=== PATIENT | female | born 1940 | race Caucasian/White ===

== ENCOUNTER 2020-09-01 14:44 | Outpatient (REF) | payer MEDICARE, SELFPAY ==
[2020-09-01 16:31] LABS: Appearance Urine CLEAR; Color Urine YELLOW; Glucose Urine UA NEG (NEG); Leukocyte Esterase Urine NEG (NEG); Nitrite Urine NEG (NEG); Specific Gravity - Urine <= 1.005 (1.005-1.025); Urine Blood 2+ (NEG); Urine Ketones NEG (NEG); Urine Protein NEG (NEG-TRACE)
[2020-09-01 16:38] LABS: Bacteria Urine TRACE /LPF; Mucus Urine TRACE /LPF; RBC Urine 0-2 /HPF (0); Squamous Epithelial Cell Urine TRACE /LPF; WBC Urine 0 /HPF (0-4)
== END 2020-09-01 14:45 | disposition home or self-care (01) ==
LOC: HO.HMGCLDS 14:44
PROVIDERS: PCP Internal Medicine; Visit Provider Internal Medicine
DX: R31.29 Other microscopic hematuria (principal)
CPT/HCPCS: 81001; 88112

== ENCOUNTER 2020-09-02 09:40 | Outpatient (REF) | payer MEDICARE, SELFPAY ==
[2020-09-02 11:32] LABS: MANUAL DIFF FLAG NO
[2020-09-02 11:53] LABS: Basophils Percent Auto 0.6 % (0-2); Eosinophils Absolute Auto 0.2 X10*3/uL (0.0-0.4); Eosinophils Percent Auto 4.8 % (0-4); Hematocrit 36.4 % (37-47); Hemoglobin 11.7 g/dl (12.0-16.0); Imm Gran Abs Auto 0.01 X10*3/uL (0.00-0.03); Imm Gran Pct Auto 0.2 % (0.0-0.4); Lymphocytes Absolute Auto 1.3 X10*3/uL (1.2-4.9); Lymphocytes Percent Auto 27.9 % (20-40); Mean Corpuscular HGB Conc 32.1 g/dl (31.0-35.0); Mean Corpuscular Hemoglobin 27.9 pg (27.0-33.0); Mean Corpuscular Volume 86.7 fL (80-98); Mean Platelet Volume 10.1 fL (9.4-12.3); Monocytes Absolute Auto 0.5 X10*3/uL (0.1-1.2); Monocytes Percent Auto 10.4 % (2-11); Neutrophils Absolute Auto 2.6 X10*3/uL (2.0-8.3); Neutrophils Percent Auto 56.1 % (45-73); Platelet Count 236 X10*3/uL (160-400); Red Cell Distribution Width 13.4 % (11.0-16.0); White Blood Count 4.6 X10*3/uL (4.8-10.8)
[2020-09-02 11:58] LABS: Alanine Aminotransferase 20 U/L (0-31); Anion Gap 10 (12-20); Aspartate Amino Transferase 23 U/L (5-31); Blood Urea Nitrogen 17 mg/dL (9-16); Calcium 9.1 mg/dL (8.4-10.2); Carbon Dioxide 30 mmol/L (22-29); Chloride 106 mmol/L (96-108); Cholesterol 175 mg/dL; Estimated Glomerular Filt Rate > 60; Glucose Fasting 77 mg/dL (60-99); HDL Cholesterol 62 mg/dL; LDL Cholesterol Calculated 102 mg/dl; Potassium 4.1 mmol/L (3.3-5.1); Sodium 142 mmol/L (135-145); Triglycerides 55 mg/dL
[2020-09-02 12:22] LABS: TSH reflex Free T4 2.59 uIU/mL (0.32-4.0); Vitamin D 25-OH Total 46.6 ng/mL (>30)
== END 2020-09-02 09:41 | disposition home or self-care (01) ==
LOC: HO.HMGCLDS 09:40
PROVIDERS: PCP Internal Medicine; Visit Provider Internal Medicine
DX: Z00.00 Encounter for general adult medical examination without abnormal findings (principal); I10 Essential (primary) hypertension; Z78.0 Asymptomatic menopausal state
CPT/HCPCS: 36415; 80048; 80061; 82306; 84443; 84450; 84460; 85025

== ENCOUNTER 2020-10-27 13:38 | Outpatient (REF) | payer MEDICARE, SELFPAY ==
--- NOTE | ~2020-10-27 | MM_ITS ---
EXAMINATION: MM SCREENING DIGITAL BREAST TOMOSYNTHESIS, BILATERAL CLINICAL INFORMATION: Screening. Asymptomatic. The lifetime risk of breast cancer based on the Tyrer-Cuzick Model is 1%. COMPARISON: Mammography: 10/22/2019, 10/02/2018, 09/16/2017 TECHNIQUE: Digital breast tomosynthesis is performed in both the craniocaudal and mediolateral oblique views along with computer-aided detection (CAD). Synthesized 2D images are generated from the tomosynthesis. Additional left MLO view is provided. FINDINGS: There are scattered areas of fibroglandular density (ACR BI-RADS breast composition Category b). There are no significant masses, abnormal calcifications, or other abnormalities. The axilla and skin contours are unremarkable. No significant changes. MM/MM tomosynthesis screening BI IMPRESSION: No mammographic evidence of malignancy. ASSESSMENT: BI-RADS 1: Negative RECOMMENDATION: Routine annual mammography screening. This patient's information was entered into a reminder system with a target due date for their next mammogram.
== END 2020-10-27 13:39 | disposition home or self-care (01) ==
LOC: HO.MAMMO 13:38
PROVIDERS: Visit Provider Internal Medicine
DX: Z12.31 Encounter for screening mammogram for malignant neoplasm of breast (principal)
CPT/HCPCS: 77063; 77067

== ENCOUNTER 2021-09-09 11:26 | Outpatient (REF) | payer MEDICARE, SELFPAY ==
[2021-09-09 13:27] LABS: MANUAL DIFF FLAG NO
[2021-09-09 13:29] LABS: Basophils Absolute Auto 0.1 X10*3/uL (0.0-0.2); Basophils Percent Auto 0.9 % (0-2); Eosinophils Absolute Auto 0.1 X10*3/uL (0.0-0.4); Eosinophils Percent Auto 2.1 % (0-4); Hematocrit 36.8 % (37.0-47.0); Hemoglobin 11.9 g/dl (12.0-16.0); Imm Gran Abs Auto 0.01 X10*3/uL (0.00-0.03); Imm Gran Pct Auto 0.2 % (0.0-0.4); Lymphocytes Absolute Auto 1.5 X10*3/uL (1.2-4.9); Lymphocytes Percent Auto 26.7 % (20-40); Mean Corpuscular HGB Conc 32.3 g/dl (31.0-35.0); Mean Corpuscular Hemoglobin 27.7 pg (27.0-33.0); Mean Corpuscular Volume 85.8 fL (80.0-98.0); Mean Platelet Volume 10.2 fL (9.4-12.3); Monocytes Absolute Auto 0.7 X10*3/uL (0.1-1.2); Monocytes Percent Auto 11.4 % (2-11); Neutrophils Absolute Auto 3.4 x10*3/uL (2.0-8.3); Neutrophils Percent Auto 58.7 % (45-73); Platelet Count 337 X10*3/uL (160-400); Red Blood Count 4.29 X10*6/uL (4.20-5.50); White Blood Count 5.7 X10*3/uL (4.8-10.8)
[2021-09-09 13:43] LABS: Alanine Aminotransferase 19 U/L (0-31); Anion Gap 15 (12-20); Aspartate Amino Transferase 24 U/L (5-31); Blood Urea Nitrogen 17 mg/dL (9-16); Calcium 9.5 mg/dL (8.4-10.2); Carbon Dioxide 26 mmol/L (22-29); Chloride 102 mmol/L (96-108); Cholesterol 177 mg/dL; Estimated Glomerular Filt Rate > 60; Glucose Fasting 101 mg/dL (60-99); HDL Cholesterol 67 mg/dL; Iron 83 mcg/dL (30-160); LDL Cholesterol Calculated 97 mg/dl; Percent Iron Saturation 24 % (15-50); Potassium 3.9 mmol/L (3.3-5.1); Sodium 139 mmol/L (135-145); Total Iron Binding Capacity 350 mcg/dL (228-428); Triglycerides 66 mg/dL; Unsaturated Iron Binding 267 ug/dL
[2021-09-09 14:03] LABS: TSH reflex Free T4 3.62 uIU/mL (0.32-4.0); Vitamin D 25-OH Total 48.3 ng/mL (>30)
== END 2021-09-09 11:27 | disposition home or self-care (01) ==
LOC: HO.HMGCLDS 11:26
PROVIDERS: PCP Internal Medicine; Visit Provider Internal Medicine
DX: I10 Essential (primary) hypertension (principal); M81.0 Age-related osteoporosis without current pathological fracture; N95.9 Unspecified menopausal and perimenopausal disorder; D64.9 Anemia, unspecified
CPT/HCPCS: 36415; 80048; 80061; 82306; 83540; 84443; 84450; 84460; 85025

== ENCOUNTER 2021-10-31 12:55 | Outpatient (REF) | payer MEDICARE, SELFPAY ==
--- NOTE | ~2021-10-31 | MM_ITS ---
EXAMINATION: MM SCREENING DIGITAL BREAST TOMOSYNTHESIS, BILATERAL CLINICAL INFORMATION: Screening. Asymptomatic. The lifetime risk of breast cancer based on the Tyrer-Cuzick Model is 1.1%. COMPARISON: Mammography: October 27, 2020 and studies dating back to August 05, 2013 TECHNIQUE: Digital breast tomosynthesis is performed in both the craniocaudal and mediolateral oblique views along with computer-aided detection (CAD). Synthesized 2D images are generated from the tomosynthesis. FINDINGS: There are scattered areas of fibroglandular density (ACR BI-RADS breast composition Category b). There are no significant masses, abnormal calcifications, or other abnormalities. MM/MM tomosynthesis screening BI IMPRESSION: There are no significant changes from prior study. ASSESSMENT: BI-RADS 1: Negative RECOMMENDATION: Routine annual mammography screening. This patient's information was entered into a reminder system with a target due date for their next mammogram.
== END 2021-10-31 12:56 | disposition home or self-care (01) ==
LOC: HO.MAMMO 12:55
PROVIDERS: PCP Internal Medicine; Visit Provider Internal Medicine
DX: Z12.31 Encounter for screening mammogram for malignant neoplasm of breast (principal)
CPT/HCPCS: 77063; 77067

== ENCOUNTER 2022-11-01 13:23 | Outpatient (REF) | payer MEDICARE, SELFPAY ==
--- NOTE | ~2022-11-01 | MM_ITS ---
EXAMINATION: MM SCREENING DIGITAL BREAST TOMOSYNTHESIS, BILATERAL CLINICAL INFORMATION: Screening. Asymptomatic. The lifetime risk of breast cancer based on the Tyrer-Cuzick Model is 0.9%. COMPARISON: Mammography: 10/27/2020, 09/22/2019, and dating back to 2016. TECHNIQUE: Digital breast tomosynthesis is performed in both the craniocaudal and mediolateral oblique views along with computer-aided detection (CAD). Synthesized 2D images are generated from the tomosynthesis. FINDINGS: The breasts are heterogeneously dense, which may obscure small masses (ACR BI-RADS breast composition Category c). There are no suspicious masses, suspicious grouped calcifications, or areas of architectural distortion. The parenchymal pattern is stable from prior exams. There are no skin changes. The breasts appear slightly smaller and slightly more dense than previously and 2021, likely secondary to weight loss. MM/MM tomosynthesis screening BI IMPRESSION: No mammographic evidence of malignancy. ASSESSMENT: BI-RADS BI-RADS 1 - Negative RECOMMENDATION: Routine annual mammography screening. 1 year F/U This examination should not preclude the clinical evaluation of a suspicious palpable abnormality. This patient's information was entered into a reminder system with a target due date for their next mammogram.
== END 2022-11-01 13:24 | disposition home or self-care (01) ==
LOC: HO.MAMMO 13:23
PROVIDERS: PCP Internal Medicine; Visit Provider Internal Medicine
DX: Z12.31 Encounter for screening mammogram for malignant neoplasm of breast (principal)
CPT/HCPCS: 77063; 77067

== ENCOUNTER → 2022-11-01 13:30 | Outpatient (BNV) | payer MEDICARE, SELFPAY | PROVIDERS: PCP Internal Medicine; Visit Provider Radiology Diagnostic Radiology | DX: Z12.31 Encounter for screening mammogram for malignant neoplasm of breast (principal) | CPT/HCPCS: 77063; 77067 ==

== ENCOUNTER 2023-01-10 13:51 | Outpatient (AMB) | payer MEDICARE, SELFPAY ==
--- NOTE | 2023-01-10 13:55 | A.OFFPC_ITS ---
Vital Signs 01/10/23 13:57 Height 5 ft 4 in Weight 105 lb 2 oz BMI 18.0 BP 160/84 H Blood Pressure Location Lt brachial Position Sitting Pulse 119 H Pulse Source Pulse Oximeter Pulse Oximetry (%) 99 Oxygen Delivery Method Room Air Intake Visit Reasons: Annual PE Intake Note: pt is here for PE pt will go to get flu vaccine pt would like to go back on her amlodipine Allergies Iodinated Contrast Media [IV CONTRAST] Allergy (Severe, Verified 01/10/23 14:44) SEVERE VOMITING-SHELLFISH ALLERGY mold [MOLD] Allergy (Severe, Verified 01/10/23 14:44) PASSES OUT shellfish derived [SHELLFISH DERIVED] Allergy (Severe, Verified 01/10/23 14:44) VOMITING Penicillins [PENICILLINS] Allergy (Intermediate, Verified 01/10/23 14:44) RASH penicillin V Allergy (Unknown, Verified 01/10/23 14:44) HIVES ENVIRONMENTAL Allergy (Intermediate, Uncoded 01/10/23 14:44) HAYFEVER IV Dye Allergy (Unknown, Uncoded 01/10/23 14:44) shortness of breath shelfish Allergy (Unknown, Uncoded 01/10/23 14:44) vomiting, indigestion Medication List - Last Reconciled 01/10/23 by Genet Parra MD alprazolam (Xanax) 0.25 mg PO DAILY PRN ofzchkuxcunl-ybdm-ogyzx acid 18-400 mg-mcg (Centrum Women) 1 tab PO DAILY Tobacco use date assessed: 01/10/23 Fall risk assessment: No Falls in past year Last assessed Fall Risk: 01/10/23 Dental Screening Dental Screen Date: 01/10/23 Did you have a dental visit in the last 12 months?: Yes Did you have a dental problem in the last 6 months where you did not have access to dental care?: No Was dental information given to patient?: Patient has dentist HPI Annual PE HPI Details 82-year-old lady here today for physical exam. She has hypertension, currently not on any medication at present time. Stopped taking amlodipine, as she felt that she did not needed any more. Her blood pressure today however, is noted to be elevated . Denies any chest pain or chills shortness of breath, no headache, but gets occasional dizziness. Noted to be tachycardic on this visit. She has generalized anxiety disorder, takes alprazolam as needed for acute anxiety attacks. Does not want to get any for other testing for osteoporosis or colon cancer screening, nor does she want to get any vaccines [facility] Medical History Sinus tachycardia Normocytic normochromic anemia Colonoscopy refused Generalized anxiety disorder Essential hypertension Osteoporosis Fracture of femoral neck, left Surgical History History of cholecystectomy History of appendectomy History of tonsillectomy and adenoidectomy History of left hip hemiarthroplasty Social History Housing: House Patient Tobacco Use Status: Never used Tobacco e-Cigarette/Vaping Use: Never Used service: No Current occupational status: retired Cognitive needs: No Hearing needs: No Vision needs: Yes Questionnaire PHQ-9 Over the last 2 weeks, how often have you been bothered by any of the following problems? 1. Little interest or pleasure in doing things: not at all 2. Feeling down, depressed, or hopeless: not at all 3. Trouble falling or staying asleep, or sleeping too much: not at all 4. Feeling tired or having little energy: not at all 5. Poor appetite or overeating: not at all 6. Feeling bad about yourself - or that you are a failure or have let yourself or your family down: not at all 7. Trouble concentrating on things, such as reading the newspaper or watching television: not at all 8. Moving or speaking so slowly that other people could have noticed. Or the opposite - being so fidgety or restless that you have been moving around a lot more than usual: not at all 9. Thoughts that you would be better off or of hurting yourself in some way: not at all Total score: 0 Depression Screening Interpretation: Negative Depression Screening Done: Yes Source: Developed by Drs. Miko Frias, Deja Herrera, Warner Payton and colleagues, with an educational zia from [employer]. Thrive Questionnaire Date Thrive assessed: 01/10/23 I am a: Patient What is your living situation today?: I have a steady place to live Within the past 12 months, did the food you bought not last and you didn't have the money to get more?: Never true Within the past 12 months, did you worry whether your food would run out before you got money to buy more?: Never true Do you have trouble paying for medicines?: No Do you have trouble getting transportation to medical appointments?: No Do you have trouble paying your heating and electricity bill?: No Do you have trouble taking care of your child, family member or friend?: No Do you have trouble with day-to-day activities such as bathing, preparing meals, shopping, managing finances, etc.?: No Are you currently unemployed and looking for a job?: No Are you interested in more education?: No AUDIT C Alcohol Use Questionnaire (AUDIT-C) 1. How often do you have a drink containing alcohol?: Never 3. How often do you have six or more drinks on one occasion?: Never Total Score: 0 BROCK-7 AMB Questionnaire BROCK-7 Date BROCK - 7 assessed: 01/10/23 Feeling nervous, anxious, or on edge: 1 = Several days Not being able to stop or control worryin = Not at all Worrying too much about different things: 0 = Not at all Trouble relaxin = Not at all Being so restless that it is hard to sit still: 0 = Not at all Becoming easily annoyed or irritable: 0 = Not at all Feeling afraid as if something awful might happen: 0 = Not at all Total BROCK-7 score (0-4 normal; 5-9 mild; 10-14 moderate; 15-21 severe): 1 Source: Developed by Drs. Miko Frias, Deja Herrera, Warner Payton and colleagues, with an educational zia from [employer]. Review of Systems Const Denies body aches, Denies fatigue, Denies fever(s), Denies headache(s) and Denies weakness Eyes Details: Has an appointment with Dr. Paul next week for for follow-up regarding glaucoma suspect Denies change in vision ENT Details: Sees her dentist every 8 months Denies dizziness, Denies headache(s), Denies nasal congestion, Denies nasal discharge and Denies sore throat Card Denies chest pain, Denies lightheadedness, Denies palpitations and Denies dyspnea Resp Denies chest congestion, Denies cough, Denies dyspnea and Denies wheezing GI Denies abdominal pain, Denies change in bowel habits and Denies heartburn Denies urinary frequency, Denies dysuria, Reports urinary incontinence (Occasional) and Denies urinary urgency Musc Denies arthralgias, Denies joint swelling and Reports stiffness Skin/Breast Denies lesions and Denies rash Neuro Denies dizziness, Denies headache(s) and Denies weakness Psych Reports no additional complaints Endo Denies fatigue, Denies polydipsia, Denies polyuria and Denies palpitations Arvind/Lymph Denies easy bruising Aller/Immun Denies seasonal rhinorrhea and Denies wheezing Physical exam (Primary Care) Vital Signs: Last Vital Signs Pulse 119 H 01/10/23 13:57 BP 160/84 H 01/10/23 13:57 Pulse Ox 99 01/10/23 13:57 Oxygen Delivery Method Room Air 01/10/23 13:57 BMI result Body Mass Index 18.0 Tobacco/Smoking Status: Tobacco use Status Tobacco use date assessed 01/10/23 01/10/23 14:07 Patient Tobacco Use Status Never used Tobacco 01/10/23 13:55 e-Cigarette/Vaping Use Never Used 01/10/23 13:55 PHQ-9: PHQ-9 Score PHQ-9: Total score 0 01/11/23 11:49 Depression Screening Interpretation: Negative Thrive Assessment: Date of Thrive Assessment Date Thrive assessed 01/10/23 01/10/23 15:05 Const General: comfortable, no acute distress and alert Orientation/consciousness: patient oriented x3 Limitations: no limitations HENMT Ears: external ears normal, TM's normal bilaterally and EAC's normal General nose exam: Normal external nose present and No nasal discharge present Mouth: Normal oral and palatal mucosa present, oropharynx normal and moist mucous membranes Eyes General: appearance normal, both eyes and all related structures Conjunctivae: conjunctivae normal Sclerae: sclerae normal Pupils: Equal, round and reactive pupils present EOM: EOMs intact bilaterally Neck Neck: Yes full ROM, Yes no lymphadenopathy and Yes supple Resp Effort & Inspection: normal respiratory effort and able to speak in complete sentences Auscultation: clear to auscultation bilaterally Cardio Rate: tachycardic GI Palpation (GI): Soft to palpation, nontender and no masses Auscultation: normal bowel sounds Back/Spine/Pelvis Back: No back tenderness Skin General skin exam: no rashes or lesions noted Neuro General: patient oriented x3, gait normal, tone normal, moves all extremities, Normal light touch and pain sensation and no focal motor deficits Cranial nerves: Yes CN's II-XII intact bilaterally and Yes Equal, round and reactive pupils present Cognition (Neuro): normal cognition Extrem General: Yes full ROM, Yes no joint enlargement, Yes no clubbing, cyanosis or edema and Yes no calf tenderness Psych Appearance: grossly normal and well kempt Mental Status: mental status grossly normal Affect: normal affect Attitude: cooperative Thought process: Normal thought process present Thought content: Normal thought content present and suicidality Assessment and Plan Assessment & Plan (1) Annual visit for general adult medical examination with abnormal findings: Code(s): Z00.01 - Encounter for general adult medical examination with abnormal findings Plan: Will check appropriate labs. Recommended dental visit every 6 months and regular eye exams, at least every 2 years, sees Dr. Paul. Take adequate calcium in diet and vitamin-D 3 at 2000 IU per cap once a day, in addition to weight-bearing exercises to help maintain good muscle tone and weight control. Patient declines further testing for breast cancer colon cancer screening, has osteoporosis but does not want to start any medication and declines further testing She already received her flu vaccine, up-to-date with her pneumonia vaccine, reminded to get COVID booster (2) Generalized anxiety disorder: Code(s): F41.1 - Generalized anxiety disorder Plan: Takes alprazolam 0.25 mg tablet as needed for acute anxiety attacks. (3) Sinus tachycardia: Code(s): R00.0 - Tachycardia, unspecified Plan: EKG done today showed presence of sinus tachycardia with occasional PVCs, left atrial enlargement, unchanged from previous EKG done September 05 (4) Normocytic normochromic anemia: Code(s): D64.9 - Anemia, unspecified Plan: TSH reflex free T4, vitamin-D level, CBC and comprehensive metabolic panel ordered. Sinus tachycardia seen on EKG done today, unchanged from previous (5) Colonoscopy refused: Code(s): Z53.20 - Procedure and treatment not carried out because of patient's decision for unspecified reasons (6) Essential hypertension: Code(s): I10 - Essential (primary) hypertension Plan: Blood pressure elevated today, restarted back on amlodipine 2.5 mg taken once a day in a.m... Reinforced importance of following a low sodium diet, getting regular exercise, and lowering stress levels. Orders: Orders TSH reflex Free T4 01/10/23 F41.1 - Generalized anxiety disorder, R00.0 - Tachycardia, unspecified, D64.9 - Anemia, unspecified, Z53.20 - Procedure and treatment not carried out because of patient's decision for unspecified reasons, I10 - Essential (primary) hypertension, M81.0 - Age-related osteoporosis without current pathological fracture, Z00.01 - Encounter for general adult medical examination with abnormal findings Vitamin D 25-OH Total 01/10/23 F41.1 - Generalized anxiety disorder, R00.0 - Tachycardia, unspecified, D64.9 - Anemia, unspecified, Z53.20 - Procedure and treatment not carried out because of patient's decision for unspecified reasons, I10 - Essential (primary) hypertension, M81.0 - Age-related osteoporosis without current pathological fracture, Z00.01 - Encounter for general adult med ical examination with abnormal findings Lipid Panel 01/10/23 F41.1 - Generalized anxiety disorder, R00.0 - Tachycardia, unspecified, D64.9 - Anemia, unspecified, Z53.20 - Procedure and treatment not carried out because of patient's decision for unspecified reasons, I10 - Essential (primary) hypertension, M81.0 - Age-related osteoporosis without current pathological fracture, Z00.01 - Encounter for general adult medical examination with abnormal findings Complete Blood Count Auto Diff 01/10/23 F41.1 - Generalized anxiety disorder, R00.0 - Tachycardia, unspecified, D64.9 - Anemia, unspecified, Z53.20 - Procedure and treatment not carried out because of patient's decision for unspecified reasons, I10 - Essential (primary) hypertension, M81.0 - Age-related osteoporosis without current pathological fracture, Z00.01 - Encounter for general adult medical examination with abnormal findings Vitamin B12 and Folate 01/10/23 F41.1 - Generalized anxiety disorder, R00.0 - Tachycardia, unspecified, D64.9 - Anemia, unspecified, Z53.20 - Procedure and treatment not carried out because of patient's decision for unspecified reasons, I10 - Essential (primary) hypertension, M81.0 - Age-related osteoporosis without current pathological fracture, Z00.01 - Encounter for general adult medical examination with abnormal findings Comprehensive [place]. Panel Fast 01/10/23 F41.1 - Generalized anxiety disorder, R00.0 - Tachycardia, unspecified, D64.9 - Anemia, unspecified, Z53.20 - Procedure and treatment not carried out because of patient's decision for unspecified reasons, I10 - Essential (primary) hypertension, M81.0 - Age-related osteoporosis without current pathological fracture, Z00.01 - Encounter for general adult medical examination with abnormal findings AMB EKG-In Office 01/10/23 R00.0 - Tachycardia, unspecified Medications: New amlodipine 2.5 mg PO DAILY 90 tabs 0RF Refilled alprazolam (Xanax) 0.25 mg PO DAILY PRN 30 tabs 0RF anxiety attacks F41.1 - Generalized anxiety disorder Coding Level of Care Code Est Pt Prev Care >65y(13881) Diagnoses Annual visit for general adult medical examination with abnormal findings Z00.01 Generalized anxiety disorder F41.1 Sinus tachycardia R00.0 Normocytic normochromic anemia D64.9 Colonoscopy refused Z53.20 Essential hypertension I10
[2023-01-10 13:57] VITALS: BP 160/84; PULSE 119; O2SAT 99; BMI 18.0
== END 2023-01-10 15:49 | disposition home or self-care (01) ==
PROVIDERS: Visit Provider Internal Medicine
DX: Z00.01 Encounter for general adult medical examination with abnormal findings (principal); F41.1 Generalized anxiety disorder; R00.0 Tachycardia, unspecified; D64.9 Anemia, unspecified; Z53.20 Procedure and treatment not carried out because of patient's decision for unspecified reasons; I10 Essential (primary) hypertension
CPT/HCPCS: 99213; 99397

== ENCOUNTER 2023-01-30 10:49 | Outpatient (REF) | payer MEDICARE, SELFPAY ==
[2023-01-30 13:34] LABS: MANUAL DIFF FLAG NO
[2023-01-30 13:45] LABS: Basophils Absolute Auto 0.1 X10*3/uL (0.0-0.2); Basophils Percent Auto 0.9 % (0-2); Eosinophils Absolute Auto 0.2 X10*3/uL (0.0-0.4); Hematocrit 37.8 % (37.0-47.0); Hemoglobin 12.6 g/dl (12.0-16.0); Imm Gran Abs Auto 0.02 X10*3/uL (0.00-0.03); Imm Gran Pct Auto 0.3 % (0.0-0.4); Lymphocytes Absolute Auto 1.9 X10*3/uL (1.2-4.9); Lymphocytes Percent Auto 28.8 % (20-40); Mean Corpuscular HGB Conc 33.3 g/dl (31.0-35.0); Mean Corpuscular Hemoglobin 28.6 pg (27.0-33.0); Mean Corpuscular Volume 85.9 fL (80.0-98.0); Mean Platelet Volume 10.2 fL (9.4-12.3); Monocytes Absolute Auto 0.7 X10*3/uL (0.1-1.2); Monocytes Percent Auto 11.1 % (2-11); Neutrophils Absolute Auto 3.7 x10*3/uL (2.0-8.3); Neutrophils Percent Auto 55.9 % (45-73); Platelet Count 305 X10*3/uL (160-400); Red Cell Distribution Width 13.1 % (11.0-16.0); White Blood Count 6.6 X10*3/uL (4.8-10.8)
[2023-01-30 14:10] LABS: Alanine Aminotransferase 18 U/L (0-31); Albumin Level 4.2 g/dL (3.5-5.0); Alkaline Phosphatase 78 U/L (39-117); Anion Gap 14 (12-20); Aspartate Amino Transferase 26 U/L (5-31); Bilirubin Total 1.1 mg/dL (0.0-1.0); Blood Urea Nitrogen 13 mg/dL (9-16); Calcium 9.7 mg/dL (8.4-10.2); Carbon Dioxide 26 mmol/L (22-29); Chloride 101 mmol/L (96-108); Cholesterol 189 mg/dL (<200); Estimated Glomerular Filt Rate > 60; Glucose Fasting 97 mg/dL (60-99); HDL Cholesterol 74 mg/dL (>40); LDL Cholesterol Calculated 99 mg/dL (<100); Potassium 3.5 mmol/L (3.3-5.1); Sodium 137 mmol/L (135-145); Total Protein 8.4 g/dL (6.5-8.0); Triglycerides 81 mg/dL (<150)
[2023-01-30 14:30] LABS: TSH reflex Free T4 4.19 uIU/mL (0.32-4.0); Vitamin D 25-OH Total 59.5 ng/mL (>30)
[2023-01-30 14:39] LABS: Folate 15.5 ng/mL (> or = 4.0); Vitamin B12 816 pg/mL (200-900)
[2023-01-30 15:30] LABS: Free T4 (Free Thyroxine) 0.93 ng/dL (0.71-1.85)
== END 2023-01-30 10:50 | disposition home or self-care (01) ==
LOC: HO.HMGCLDS 10:49
PROVIDERS: PCP Internal Medicine; Visit Provider Internal Medicine
DX: Z00.01 Encounter for general adult medical examination with abnormal findings (principal); F41.1 Generalized anxiety disorder; R00.0 Tachycardia, unspecified; D64.9 Anemia, unspecified; I10 Essential (primary) hypertension; M81.0 Age-related osteoporosis without current pathological fracture
CPT/HCPCS: 36415; 80053; 80061; 82306; 82607; 82746; 84439; 84443; 85025

== ENCOUNTER 2023-02-21 14:30 | Outpatient (AMB) | payer MEDICARE, SELFPAY ==
--- NOTE | 2023-02-21 14:36 | A.OFFPC_ITS ---
Vital Signs 02/21/23 14:40 Height 5 ft 4 in Weight 106 lb 4 oz BMI 18.2 BP 162/78 H Blood Pressure Location Lt brachial Position Sitting Pulse 61 Pulse Source Pulse Oximeter Pulse Oximetry (%) 98 Oxygen Delivery Method Room Air Intake Visit Reasons: one month fu Intake Note: pt is here to follow up 1 month after restarting her BP medication Allergies Iodinated Contrast Media [IV CONTRAST] Allergy (Severe, Verified 02/21/23 14:55) SEVERE VOMITING-SHELLFISH ALLERGY mold [MOLD] Allergy (Severe, Verified 02/21/23 14:55) PASSES OUT shellfish derived [SHELLFISH DERIVED] Allergy (Severe, Verified 02/21/23 14:55) VOMITING Penicillins [PENICILLINS] Allergy (Intermediate, Verified 02/21/23 14:55) RASH penicillin V Allergy (Unknown, Verified 02/21/23 14:55) HIVES ENVIRONMENTAL Allergy (Intermediate, Uncoded 02/21/23 14:55) HAYFEVER IV Dye Allergy (Unknown, Uncoded 02/21/23 14:55) shortness of breath shelfish Allergy (Unknown, Uncoded 02/21/23 14:55) vomiting, indigestion Medication List - Last Reconciled 02/21/23 by Genet Parra MD alprazolam (Xanax) 0.25 mg PO DAILY PRN amlodipine 2.5 mg PO DAILY dhsmmbjkrtha-hfsu-zidxy acid 18-400 mg-mcg (Centrum Women) 1 tab PO DAILY Tobacco use date assessed: 02/21/23 Fall risk assessment: No Falls in past year Last assessed Fall Risk: 02/21/23 HPI one month fu HPI Details 82-year-old lady with hypertension, here today for follow-up on her blood pressure. Currently taking amlodipine 2.5 mg once a day in the morning. She has been checking her blood pressure at home with a radial blood pressure monitor and she has been getting 130/80 all the time. Denies any chest pain, no shortness of breath or lightheadedness. Has been following a low-salt diet. [facility] Medical History Sinus tachycardia Normocytic normochromic anemia Colonoscopy refused Generalized anxiety disorder Essential hypertension Osteoporosis Fracture of femoral neck, left Surgical History History of cholecystectomy History of appendectomy History of tonsillectomy and adenoidectomy History of left hip hemiarthroplasty Social History Housing: House Patient Tobacco Use Status: Never used Tobacco e-Cigarette/Vaping Use: Never Used service: No Current occupational status: retired Cognitive needs: No Hearing needs: No Vision needs: Yes Questionnaire PHQ-9 Over the last 2 weeks, how often have you been bothered by any of the following problems? 1. Little interest or pleasure in doing things: not at all 2. Feeling down, depressed, or hopeless: not at all 3. Trouble falling or staying asleep, or sleeping too much: not at all 4. Feeling tired or having little energy: several days 5. Poor appetite or overeating: not at all 6. Feeling bad about yourself - or that you are a failure or have let yourself or your family down: not at all 7. Trouble concentrating on things, such as reading the newspaper or watching television: not at all 8. Moving or speaking so slowly that other people could have noticed. Or the opposite - being so fidgety or restless that you have been moving around a lot more than usual: not at all 9. Thoughts that you would be better off or of hurting yourself in some way: not at all Total score: 1 Source: Developed by Drs. Miko Frias, Deja Herrera, Warner Payton and colleagues, with an educational zia from [employer]. Thrive Questionnaire Date Thrive assessed: 01/10/23 BROCK-7 AMB Questionnaire BROCK-7 Date BROCK - 7 assessed: 02/21/23 Feeling nervous, anxious, or on edge: 1 = Several days Not being able to stop or control worryin = Several days Worrying too much about different things: 1 = Several days Trouble relaxin = Several days Being so restless that it is hard to sit still: 0 = Not at all Becoming easily annoyed or irritable: 0 = Not at all Feeling afraid as if something awful might happen: 1 = Several days Total BROCK-7 score (0-4 normal; 5-9 mild; 10-14 moderate; 15-21 severe): 5 Source: Developed by Drs. Miko Frias, Deja Herrera, Warner Payton and colleagues, with an educational zia from [employer]. Review of Systems Const Denies body aches, Denies fever(s), Denies headache(s) and Denies weakness ENT Details: Sees her dentist every 8 months Denies dizziness, Denies headache(s), Denies nasal congestion, Denies nasal discharge and Denies sore throat Card Denies chest pain, Denies lightheadedness and Denies dyspnea Resp Denies chest congestion, Denies cough and Denies dyspnea GI Denies abdominal pain, Denies change in bowel habits and Denies heartburn Musc Denies arthralgias, Denies joint swelling and Reports stiffness Neuro Denies dizziness, Denies headache(s) and Denies weakness Physical exam (Primary Care) Vital Signs: Last Vital Signs Pulse 61 02/21/23 14:40 BP 162/78 H 02/21/23 14:40 Pulse Ox 98 02/21/23 14:40 Oxygen Delivery Method Room Air 02/21/23 14:40 BMI result Body Mass Index 18.2 Tobacco/Smoking Status: Tobacco use Status Tobacco use date assessed 02/21/23 02/21/23 14:45 Patient Tobacco Use Status Never used Tobacco 02/21/23 14:36 e-Cigarette/Vaping Use Never Used 02/21/23 14:36 Thrive Assessment: Date of Thrive Assessment Date Thrive assessed 01/10/23 02/21/23 14:36 Const General: comfortable, no acute distress and alert Orientation/consciousness: patient oriented x3 [facility] General nose exam: Normal external nose present Mouth: Normal oral and palatal mucosa present, oropharynx normal and moist mucous membranes Eyes General: appearance normal, both eyes and all related structures Conjunctivae: conjunctivae normal Sclerae: sclerae normal Pupils: Equal, round and reactive pupils present EOM: EOMs intact bilaterally Neck Neck: Yes full ROM, Yes no lymphadenopathy and Yes supple Resp Effort & Inspection: normal respiratory effort and able to speak in complete sentences Auscultation: clear to auscultation bilaterally Cardio Rate: tachycardic GI Palpation (GI): Soft to palpation, nontender and no masses Auscultation: normal bowel sounds Neuro General: patient oriented x3, gait normal, tone normal, moves all extremities, Normal light touch and pain sensation and no focal motor deficits Cranial nerves: Yes CN's II-XII intact bilaterally and Yes Equal, round and reactive pupils present Cognition (Neuro): normal cognition Extrem General: Yes full ROM, Yes no joint enlargement, Yes no clubbing, cyanosis or edema and Yes no calf tenderness Assessment and Plan Assessment & Plan (1) Essential hypertension: Code(s): I10 - Essential (primary) hypertension Plan: Blood pressure still not at goal of less than 130/80. Will increase amlodipine dose to 5 mg daily in a.m.. Continue with low-salt diet, return to the clinic in 2 weeks to check blood pressure and advised to bring her blood pressure wrist monitor with her to compared blood pressure reading Coding Level of Care Code Est Pt Level 3 (90394) Diagnoses Essential hypertension I10
[2023-02-21 14:40] VITALS: BP 162/78; PULSE 61; O2SAT 98; BMI 18.2
== END 2023-02-21 15:07 | disposition home or self-care (01) ==
PROVIDERS: PCP Internal Medicine; Visit Provider Internal Medicine
DX: I10 Essential (primary) hypertension (principal)
CPT/HCPCS: 99213

== ENCOUNTER 2023-03-12 09:46 | Outpatient (AMB) | payer MEDICARE, SELFPAY ==
--- NOTE | 2023-03-12 09:53 | MHC.PC.OV ---
Vital Signs 03/12/23 09:56 Height 5 ft 4 in Weight 106 lb BMI 18.2 BP 152/60 H Blood Pressure Location Lt brachial Position Sitting Pulse 78 Pulse Source Pulse Oximeter Pulse Oximetry (%) 100 Oxygen Delivery Method Room Air Intake Visit Reasons: recheck BP pt to bring BP cuff Intake Note: Pt is here to recheck her BP Allergies Iodinated Contrast Media [IV CONTRAST] Allergy (Severe, Verified 03/12/23 10:33) SEVERE VOMITING-SHELLFISH ALLERGY mold [MOLD] Allergy (Severe, Verified 03/12/23 10:33) PASSES OUT shellfish derived [SHELLFISH DERIVED] Allergy (Severe, Verified 03/12/23 10:33) VOMITING Penicillins [PENICILLINS] Allergy (Intermediate, Verified 03/12/23 10:33) RASH penicillin V Allergy (Unknown, Verified 03/12/23 10:33) HIVES ENVIRONMENTAL Allergy (Intermediate, Uncoded 03/12/23 10:33) HAYFEVER IV Dye Allergy (Unknown, Uncoded 03/12/23 10:33) shortness of breath shelfish Allergy (Unknown, Uncoded 03/12/23 10:33) vomiting, indigestion Medication List - Last Reconciled 03/12/23 by Genet Parra MD alprazolam (Xanax) 0.25 mg PO DAILY PRN amlodipine 5 mg PO DAILY uavhmlfpswzc-doju-zmcob acid 18-400 mg-mcg (Centrum Women) 1 tab PO DAILY Tobacco use date assessed: 03/12/23 Fall risk assessment: No Falls in past year Last assessed Fall Risk: 03/12/23 Dental Screening Dental Screen Date: 04/10/23 Did you have a dental visit in the last 12 months?: Yes Did you have a dental problem in the last 6 months where you did not have access to dental care?: No Was dental information given to patient?: Patient has dentist HPI recheck BP pt to bring BP cuff HPI Details 82-year-old lady here today for follow-up on her hypertension, started on amlodipine 5 mg taken in the morning, on last visit. Has been tolerating amlodipine well, with no side effects of swelling in the legs, no dizziness or chest pain reported. She has been checking her blood pressure at home with her radial cuff blood pressure monitor, and has been running from between 120/ 53-135/ 59, and pulse rate ranging from between 69-76 bpm. [facility], [facility] Medical History Sinus tachycardia Normocytic normochromic anemia Colonoscopy refused Generalized anxiety disorder Essential hypertension Osteoporosis Fracture of femoral neck, left Surgical History History of cholecystectomy History of appendectomy History of tonsillectomy and adenoidectomy History of left hip hemiarthroplasty Social History Housing: House Patient Tobacco Use Status: Never used Tobacco e-Cigarette/Vaping Use: Never Used service: No Current occupational status: retired Cognitive needs: No Hearing needs: No Vision needs: Yes Questionnaire Thrive Questionnaire Date Thrive assessed: 01/10/23 BROCK-7 AMB Questionnaire BROCK-7 Date BROCK - 7 assessed: 02/21/23 Source: Developed by Drs. Miko Frias, Deaj Herrera, Warner Payton and colleagues, with an educational zia from [employer]. Review of Systems Const Denies body aches, Denies headache(s) and Denies weakness ENT Details: Sees her dentist every 8 months Denies dizziness, Denies headache(s) and Denies nasal congestion Card Denies chest pain, Denies lightheadedness and Denies dyspnea Resp Denies chest congestion, Denies cough and Denies dyspnea GI Denies abdominal pain, Denies change in bowel habits and Denies heartburn Musc Denies arthralgias, Denies joint swelling and Reports stiffness Neuro Denies dizziness, Denies headache(s) and Denies weakness Physical exam (Primary Care) Vital Signs: Last Vital Signs Pulse 78 03/12/23 09:56 BP 152/60 H 03/12/23 09:56 Pulse Ox 100 03/12/23 09:56 Oxygen Delivery Method Room Air 03/12/23 09:56 BMI result Body Mass Index 18.2 Tobacco/Smoking Status: Tobacco use Status Tobacco use date assessed 03/12/23 03/12/23 10:01 Patient Tobacco Use Status Never used Tobacco 03/12/23 09:55 e-Cigarette/Vaping Use Never Used 03/12/23 09:55 Thrive Assessment: Date of Thrive Assessment Date Thrive assessed 01/10/23 03/12/23 09:55 Const General: comfortable, no acute distress and alert Orientation/consciousness: patient oriented x3 Eyes General: appearance normal, both eyes and all related structures Neck Neck: Yes full ROM, Yes no lymphadenopathy and Yes supple Resp Effort & Inspection: normal respiratory effort and able to speak in complete sentences Auscultation: clear to auscultation bilaterally Cardio Rate: regular rate Rhythm: regular rhythm Heart sounds: S1 normal heart sound present and S2 normal heart sound present GI Palpation (GI): Soft to palpation, nontender and no masses Auscultation: normal bowel sounds Neuro General: patient oriented x3, gait normal, tone normal, moves all extremities, Normal light touch and pain sensation and no focal motor deficits Cranial nerves: Yes CN's II-XII intact bilaterally Cognition (Neuro): normal cognition Extrem General: Yes full ROM, Yes no joint enlargement, Yes no clubbing, cyanosis or edema and Yes no calf tenderness Assessment and Plan Assessment & Plan (1) Essential hypertension: Code(s): I10 - Essential (primary) hypertension Plan: Blood pressure improving.. Continue with amlodipine 5 mg once a day.. Reinforced importance of following a low sodium diet, getting regular exercise, and lowering stress levels. Continue checking blood pressure at home with her monitor and keep a log of the readings. Will see her back for follow-up after labs done in July 2023 Orders: Orders Lipid Panel 07/08/23 F41.1 - Generalized anxiety disorder, I10 - Essential (primary) hypertension, M81.0 - Age-related osteoporosis without current pathological fracture Alanine Aminotransferase 07/08/23 F41.1 - Generalized anxiety disorder, I10 - Essential (primary) hypertension, M81.0 - Age-related osteoporosis without current pathological fracture Vitamin D 25-OH Total 07/08/23 F41.1 - Generalized anxiety disorder, I10 - Essential (primary) hypertension, M81.0 - Age-related osteoporosis without current pathological fracture Basic Metabolic Panel Fasting 07/08/23 F41.1 - Generalized anxiety disorder, I10 - Essential (primary) hypertension, M81.0 - Age-related osteoporosis without current pathological fracture Aspartate Amino Transferase 07/08/23 F41.1 - Generalized anxiety disorder, I10 - Essential (primary) hypertension, M81.0 - Age-related osteoporosis without current pathological fracture Coding Level of Care Code Est Pt Level 3 (89418) Diagnoses Essential hypertension I10
[2023-03-12 09:56] VITALS: BP 152/60; PULSE 78; O2SAT 100; BMI 18.2
== END 2023-03-12 10:44 | disposition home or self-care (01) ==
PROVIDERS: PCP Internal Medicine; Visit Provider Internal Medicine
DX: I10 Essential (primary) hypertension (principal)
CPT/HCPCS: 99213

== ENCOUNTER 2023-07-16 09:56 | Outpatient (AMB) | payer MEDICARE, SELFPAY ==
[2023-07-16 10:04] VITALS: BP 142/66; PULSE 81; O2SAT 98; BMI 18.5
--- NOTE | 2023-07-16 10:04 | A.OFFPC_ITS ---
Vital Signs 07/16/23 10:04 Height 5 ft 4 in Weight 108 lb BMI 18.5 BP 142/66 H Blood Pressure Location Lt brachial Position Sitting Pulse 81 Pulse Source Pulse Oximeter Pulse Oximetry (%) 98 Oxygen Delivery Method Room Air Intake Visit Reasons: 4 month fu Intake Note: Pt is here today for her 4 months f/u Allergies Iodinated Contrast Media [IV CONTRAST] Allergy (Severe, Verified 07/16/23 10:36) SEVERE VOMITING-SHELLFISH ALLERGY mold [MOLD] Allergy (Severe, Verified 07/16/23 10:36) PASSES OUT shellfish derived [SHELLFISH DERIVED] Allergy (Severe, Verified 07/16/23 10:36) VOMITING Penicillins [PENICILLINS] Allergy (Intermediate, Verified 07/16/23 10:36) RASH penicillin V Allergy (Unknown, Verified 07/16/23 10:36) HIVES ENVIRONMENTAL Allergy (Intermediate, Uncoded 07/16/23 10:36) HAYFEVER IV Dye Allergy (Unknown, Uncoded 07/16/23 10:36) shortness of breath shelfish Allergy (Unknown, Uncoded 07/16/23 10:36) vomiting, indigestion Medication List - Last Reconciled 07/16/23 by Genet Parra MD alprazolam (Xanax) 0.25 mg PO DAILY PRN amlodipine 5 mg PO DAILY mxvtsrpjlgzz-kyir-cxlgs acid 18-400 mg-mcg (Centrum Women) 1 tab PO DAILY Tobacco use date assessed: 07/16/23 Fall risk assessment: No Falls in past year Last assessed Fall Risk: 07/16/23 Dental Screening Dental Screen Date: 07/16/23 Did you have a dental visit in the last 12 months?: Yes Did you have a dental problem in the last 6 months where you did not have access to dental care?: Yes Was dental information given to patient?: Patient has dentist HPI 4 month fu HPI Details 82-year-old lady with hypertension, gene ralized anxiety disorder, here today for her follow-up. She has been taking amlodipine 5 mg once a day, with blood pressure within acceptable limits. Takes alprazolam as needed for acute anxiety attacks, which patient states has been happening infrequently. She has history of osteoporosis but does not want to do further bone density scan testing or start any treatment for this. Overall feels well, still drives, and lives in her own home. She has an appointment already scheduled for a screening mammogram in October 2023. [facility] Medical History (Updated 07/16/23 @ 10:52 by Genet Parra MD) Colonoscopy refused Generalized anxiety disorder Essential hypertension Osteoporosis Fracture of femoral neck, left Surgical History History of cholecystectomy History of appendectomy History of tonsillectomy and adenoidectomy History of left hip hemiarthroplasty Social History Housing: House Patient Tobacco Use Status: Never used Tobacco e-Cigarette/Vaping Use: Never Used service: No Current occupational status: retired Cognitive needs: No Hearing needs: No Vision needs: Yes Questionnaire PHQ-9 Over the last 2 weeks, how often have you been bothered by any of the following problems? 1. Little interest or pleasure in doing things: not at all 2. Feeling down, depressed, or hopeless: not at all 3. Trouble falling or staying asleep, or sleeping too much: not at all 4. Feeling tired or having little energy: not at all 5. Poor appetite or overeating: not at all 6. Feeling bad about yourself - or that you are a failure or have let yourself or your family down: not at all 7. Trouble concentrating on things, such as reading the newspaper or watching television: not at all 8. Moving or speaking so slowly that other people could have noticed. Or the opposite - being so fidgety or restless that you have been moving around a lot more than usual: not at all 9. Thoughts that you would be better off or of hurting yourself in some way: not at all Total score: 0 Depression Screening Interpretation: Negative Depression Screening Done: Yes 56305 - PHQ-9 Billing: Yes Source: Developed by Drs. Miko Frias, Deja Herrera, Warner Payton and colleagues, with an educational zia from [employer]. Thrive Questionnaire Date Thrive assessed: 07/16/23 I am a: Patient What is your living situation today?: I have a steady place to live Within the past 12 months, did the food you bought not last and you didn't have the money to get more?: Never true Within the past 12 months, did you worry whether your food would run out before you got money to buy more?: Never true Do you have trouble paying for medicines?: No Do you have trouble getting transportation to medical appointments?: No Do you have trouble paying your heating and electricity bill?: No Do you have trouble taking care of your child, family member or friend?: No Do you have trouble with day-to-day activities such as bathing, preparing meals, shopping, managing finances, etc.?: No Are you currently unemployed and looking for a job?: No Are you interested in more education?: No THRIVE Score: 0 AUDIT C Alcohol Use Questionnaire (AUDIT-C) 1. How often do you have a drink containing alcohol?: Never 3. How often do you have six or more drinks on one occasion?: Never Total Score: 0 BROCK-7 AMB Questionnaire BRCOK-7 Date BROCK - 7 assessed: 07/16/23 Feeling nervous, anxious, or on edge: 0 = Not at all Not being able to stop or control worryin = Not at all Worrying too much about different things: 0 = Not at all Trouble relaxin = Not at all Being so restless that it is hard to sit still: 0 = Not at all Becoming easily annoyed or irritable: 0 = Not at all Feeling afraid as if something awful might happen: 0 = Not at all Total BROCK-7 score (0-4 normal; 5-9 mild; 10-14 moderate; 15-21 severe): 0 Source: Developed by Drs. Miko Frias, Deja Herrera, Warner Payton and colleagues, with an educational zia from [employer]. Review of Systems Const Denies body aches, Denies headache(s) and Denies weakness ENT Details: Sees her dentist every 8 months Denies dizziness, Denies headache(s) and Denies nasal congestion Card Denies chest pain, Denies lightheadedness and Denies dyspnea Resp Denies chest congestion, Denies cough and Denies dyspnea GI Denies abdominal pain, Denies change in bowel habits and Denies heartburn Musc Denies arthralgias, Denies joint swelling and Reports stiffness Neuro Denies dizziness, Denies headache(s) and Denies weakness Endo Reports no additional complaints Arvind/Lymph Reports no additional complaints Aller/Immun Reports seasonal rhinorrhea Physical exam (Primary Care) Vital Signs: Last Vital Signs Pulse 81 07/16/23 10:04 BP 142/66 H 07/16/23 10:04 Pulse Ox 98 07/16/23 10:04 Oxygen Delivery Method Room Air 07/16/23 10:04 BMI result Body Mass Index 18.5 Tobacco/Smoking Status: Tobacco use Status Tobacco use date assessed 07/16/23 07/16/23 10:15 Patient Tobacco Use Status Never used Tobacco 07/16/23 10:06 e-Cigarette/Vaping Use Never Used 07/16/23 10:06 PHQ-9: PHQ-9 Score PHQ-9: Total score 0 07/16/23 10:44 Depression Screening Interpretation: Negative Thrive Assessment: Date of Thrive Assessment Date Thrive assessed 07/16/23 07/16/23 10:19 Const General: comfortable, no acute distress and alert Nutritional Appearance: average body habitus Orientation/consciousness: patient oriented x3 Limitations: ambulation with cane HENMT Head: Yes normocephalic Mouth: Normal oral and palatal mucosa present, oropharynx normal and moist mucous membranes Eyes General: appearance normal, both eyes and all related structures Neck Neck: Yes full ROM, Yes no lymphadenopathy and Yes supple Resp Effort & Inspection: normal respiratory effort and able to speak in complete sentences Auscultation: clear to auscultation bilaterally Cardio Rate: regular rate Rhythm: regular rhythm Heart sounds: S1 normal heart sound present and S2 normal heart sound present GI Palpation (GI): Soft to palpation, nontender and no masses Auscultation: normal bowel sounds Back/Spine/Pelvis Other: Kyphosis , no tenderness on palpation over spine Neuro General: patient oriented x3, tone normal, moves all extremities, Normal light touch and pain sensation and no focal motor deficits Cranial nerves: Yes CN's II-XII intact bilaterally Cognition (Neuro): normal cognition Extrem General: Yes full ROM, Yes no joint enlargement, Yes no clubbing, cyanosis or edema and Yes no calf tenderness Psych Appearance: grossly normal and well kempt Mental Status: mental status grossly normal Speech and movement: Normal speech and movement present Affect: normal affect Results Reviewed Results Reviewed: Name: Delano Meadows Age/Sex: 82/F : 1940 Unit#: [id number] Attend Dr: Genet Parra MD Re01/30/23 Status: DEP REF Location: [facility] Disch: SPEC : [id number] MARISOL: 01/30/23 STATUS: COMP REQ : [id number] RECD: 01/30/[address]: Genet Parra MD COMP: 01/30/23 ENTERED: 01/30/[address]: ORDERED: CBC Auto Diff Test Result Flag Reference WBC 6.6 4.8-10.8 X10*3/uL RBC 4.40 4.20-5.50 X10*6/uL HGB 12.6 12.0-16.0 g/dl HCT 37.8 37.0-47.0 % MCV 85.9 80.0-98.0 fL MCH 28.6 27.0-33.0 pg MCHC 33.3 31.0-35.0 g/dl RDW 13.1 11.0-16.0 % PLT 305 160-400 X10*3/uL Name: Delano Meadows Age/Sex: 82/F : 1940 Unit#: [id number] Attend Dr: Genet Parra MD Re01/30/23 Status: DEP REF Location: [facility] Disch: SPEC : [id number] MARISOL: 01/30/23 STATUS: COMP REQ : [id number] RECD: 01/30/[address]: Genet Parra MD COMP: 01/30/23 ENTERED: 01/30/[address]: ORDERED: CMP Fast, Lipid Panel, Vitamin D 25-OH, Free T4, TSH Rflx Test Result Flag Reference Sodium 137 135-145 mmol/L Potassium 3.5 3.3-5.1 mmol/L CL 101 96-108 mmol/L CO2 26 22-29 mmol/L Gap 14 12-20 BUN 13 9-16 mg/dL Creat 0.64 0.5-1.4 mg/dL EGFR > 60 NOTE: For -[place] individuals, multiply the result by 1.210. Chronic Kidney Disease: Estimated GFR < 60 mL/min/1.73m2 Severe Kidney Disease: Estimated GFR < 15 mL/min/1.73m2 FBS 97 60-99 mg/dL CA 9.7 8.4-10.2 mg/dL Total Bili 1.1 H 0.0-1.0 mg/dL AST (GOT) 26 5-31 U/L ALT (GPT) 18 0-31 U/L Protein, Total 8.4 H 6.5-8.0 g/dL Alb 4.2 3.5-5.0 g/dL Triglyceride 81 <150 mg/dL Desirable Triglyceride: less than 150 mg/dL Borderline High Triglyceride 150-199 mg/dL High Triglyceride: 200-499 mg/dL Very High Triglyceride: greater than or equal to 5OO mg/dL Cholesterol 189 <200 mg/dL Desirable Cholesterol: less than 200 mg/dL Borderline High Cholesterol: 200-239 mg/dL High Cholesterol: greater than 239 mg/dL LDL Calculated 99 <100 mg/dL Desirable LDL: less than 100 mg/dL Near Optimal/Above Optimal LDL: 110-129 mg/dL Borderline High LDL: 130-159 mg/dL High LDL: 160-189 mg/dL Very High LDL: greater than or equal to 190 mg/dL HDL 74 >40 mg/dL Desirable HDL: greater than 40 mg/dL Note: This HDL assay may give artificially low results in patients with liver disease. Alk Phos 78 39-117 U/L Vit D 25-OH Tot 59.5 >30 ng/mL Health Based Reference Values* < 20 ng/mL Deficient 20-30 ng/mL Insufficient > 30 ng/mL Sufficient *Artur JENKINS. N Engl J Med. 2007;357:266-280 Care must be taken in interpreting Vitamin D results from different laboratories and methodologies. Published data demonstrated that results from patients undergoing hemodialysis may show a negative bias when tested with various automated 25-OH vitamin D assays when compared to LC-MS/MS. When testing samples from patients whose predominant form of Vitamin D is Vitamin D2, such as patients receiving Vitamin D2 supplementation, results that are subtherapeutic should be confirmed with another method such as LC-MS/MS. Free T4 0.93 0.71-1.85 ng/dL TSH 4.19 H 0.32-4.0 uIU/mL Assessment and Plan Assessment & Plan (1) Essential hypertension: Code(s): I10 - Essential (primary) hypertension Plan: Blood pressure within acceptable limits Continue amlodipine 5 mg daily. Reinforced importance of following a low sodium diet, getting regular exercise, and lowering stress levels. (2) Generalized anxiety disorder: Code(s): F41.1 - Generalized anxiety disorder Plan: Takes alprazolam as needed (3) Osteoporosis: Comment: Patient refused treatment and further testing Code(s): M81.0 - Age-related osteoporosis without current pathological fracture Qualifiers: Osteoporosis type: age-related Presence of current pathological fracture: without current pathological fracture Qualified Code(s): M81.0 - Age- related osteoporosis without current pathological fracture Plan: Patient advised to continue doing regular weight-bearing exercise, take adequate calcium from dietary sources continue taking centrum silver Women's vitamin daily. Coding Level of Care Code Est Pt Level 4 (84641) Diagnoses Essential hypertension I10 Generalized anxiety disorder F41.1 Age-related osteoporosis without current pathological fracture M81.0 Osteoporosis type: age-related Presence of current pathological fracture: without current pathological fracture
== END 2023-07-16 10:48 | disposition home or self-care (01) ==
PROVIDERS: PCP Internal Medicine; Visit Provider Internal Medicine
DX: I10 Essential (primary) hypertension (principal); F41.1 Generalized anxiety disorder; M81.0 Age-related osteoporosis without current pathological fracture
CPT/HCPCS: 99214

== ENCOUNTER 2023-11-05 13:12 | Outpatient (REF) | payer MEDICARE, SELFPAY | END 2023-11-05 13:13 | disposition home or self-care (01) | LOC: HO.MAMMO 13:12 | PROVIDERS: PCP Internal Medicine; Visit Provider Internal Medicine | DX: Z12.31 Encounter for screening mammogram for malignant neoplasm of breast (principal) | CPT/HCPCS: 77063; 77067 ==

== ENCOUNTER → 2023-11-05 13:30 | Outpatient (BNV) | payer MEDICARE, SELFPAY | PROVIDERS: PCP Internal Medicine; Visit Provider Radiology Diagnostic Radiology | DX: Z12.31 Encounter for screening mammogram for malignant neoplasm of breast (principal) | CPT/HCPCS: 77063; 77067 ==

== ENCOUNTER 2024-02-06 09:49 | Outpatient (REF) | payer MEDICARE, SELFPAY ==
[2024-02-06 14:22] LABS: Alanine Aminotransferase 15 U/L (0-31); Anion Gap 12 (12-20); Aspartate Amino Transferase 24 U/L (5-31); Blood Urea Nitrogen 14 mg/dL (9-16); Calcium 10.1 mg/dL (8.4-10.2); Carbon Dioxide 28 mmol/L (22-29); Chloride 103 mmol/L (96-108); Cholesterol 146 mg/dL (<200); Estimated Glomerular Filt Rate > 60; Glucose Fasting 92 mg/dL (60-99); HDL Cholesterol 63 mg/dL (>40); LDL Cholesterol Calculated 73 mg/dL (<100); Potassium 3.8 mmol/L (3.3-5.1); Sodium 139 mmol/L (135-145); Triglycerides 52 mg/dL (<150)
[2024-02-06 14:28] LABS: Vitamin D 25-OH Total 44.7 ng/mL (>30)
== END 2024-02-06 09:50 | disposition home or self-care (01) ==
LOC: HO.HMGCLDS 09:49
PROVIDERS: PCP Internal Medicine; Visit Provider Internal Medicine
DX: F41.1 Generalized anxiety disorder (principal); I10 Essential (primary) hypertension; M81.0 Age-related osteoporosis without current pathological fracture
CPT/HCPCS: 36415; 80048; 80061; 82306; 84450; 84460

== ENCOUNTER 2024-02-13 14:01 | Outpatient (AMB) | payer MEDICARE, SELFPAY ==
[2024-02-13 14:26] VITALS: BP 140/60; PULSE 67; O2SAT 96; BMI 18.4
--- NOTE | 2024-02-13 14:26 | MHC.PC.OV ---
Vital Signs 02/13/24 14:26 Height 5 ft 4 in Weight 107 lb BMI 18.4 BP 140/60 H Blood Pressure Location Lt brachial Position Sitting Pulse 67 Pulse Source Pulse Oximeter Pulse Oximetry (%) 96 Oxygen Delivery Method Room Air Intake Visit Reasons: ANNUAL Intake Note: Pt is here today for her PE Allergies Iodinated Contrast Media [IV CONTRAST] Allergy (Severe, Verified 02/13/24 14:54) SEVERE VOMITING-SHELLFISH ALLERGY mold [MOLD] Allergy (Severe, Verified 02/13/24 14:54) PASSES OUT shellfish derived [SHELLFISH DERIVED] Allergy (Severe, Verified 02/13/24 14:54) VOMITING Penicillins [PENICILLINS] Allergy (Intermediate, Verified 02/13/24 14:54) RASH penicillin V Allergy (Unknown, Verified 02/13/24 14:54) HIVES ENVIRONMENTAL Allergy (Intermediate, Uncoded 02/13/24 14:54) HAYFEVER IV Dye Allergy (Unknown, Uncoded 02/13/24 14:54) shortness of breath shelfish Allergy (Unknown, Uncoded 02/13/24 14:54) vomiting, indigestion Medication List - Last Reconciled 02/13/24 by Genet Parra MD alprazolam (Xanax) 0.25 mg PO DAILY PRN amlodipine 5 mg PO DAILY uknxwhfillzv-faco-jgswf acid 18-400 mg-mcg (Centrum Women) 1 tab PO DAILY Tobacco use date assessed: 02/13/24 Fall risk assessment: No Falls in past year Last assessed Fall Risk: 02/13/24 Dental Screening Dental Screen Date: 02/13/24 Did you have a dental visit in the last 12 months?: Yes Did you have a dental problem in the last 6 months where you did not have access to dental care?: Yes Was dental information given to patient?: Patient has dentist HPI ANNUAL HPI Details 83 year-old lady with past medical history significant for hypertension, generalized anxiety disorder, here today for her physical exam. She has been taking amlodipine 5 mg once a day, with blood pressure within acceptable limits. Takes alprazolam as needed for acute anxiety attacks, which patient states has been happening infrequently. She has history of osteoporosis but does not want to do further bone density scan testing or start any treatment for this. She is up-to-date with all her vaccinations and just needs her 2nd dose of shingles vaccine. She still drives, and lives in her own home. Had a normal screening mammogram done earlier this year Has lately been experiencing urinary frequency and urgency, usually at night. Denies any fever, no abdominal or back pain, no incontinence. [facility] Medical History Colonoscopy refused Generalized anxiety disorder Essential hypertension Osteoporosis Fracture of femoral neck, left Surgical History History of cholecystectomy History of appendectomy History of tonsillectomy and adenoidectomy History of left hip hemiarthroplasty Social History Housing: House Patient Tobacco Use Status: Never used Tobacco e-Cigarette/Vaping Use: Never Used service: No Current occupational status: retired Cognitive needs: No Hearing needs: No Vision needs: Yes Questionnaire PHQ-9 Over the last 2 weeks, how often have you been bothered by any of the following problems? 1. Little interest or pleasure in doing things: not at all 2. Feeling down, depressed, or hopeless: not at all 3. Trouble falling or staying asleep, or sleeping too much: not at all 4. Feeling tired or having little energy: several days 5. Poor appetite or overeating: not at all 6. Feeling bad about yourself - or that you are a failure or have let yourself or your family down: not at all 7. Trouble concentrating on things, such as reading the newspaper or watching television: not at all 8. Moving or speaking so slowly that other people could have noticed. Or the opposite - being so fidgety or restless that you have been moving around a lot more than usual: not at all 9. Thoughts that you would be better off or of hurting yourself in some way: not at all Total score: 1 Depression Screening Interpretation: Negative Depression Screening Done: Yes 01102 - PHQ-9 Billing: Yes Source: Developed by Drs. Miko Frias, Deja Herrera, Warner Payton and colleagues, with an educational zia from [employer]. Thrive Questionnaire Date Thrive assessed: 02/06/24 I am a: Patient What is your living situation today?: I have a steady place to live Within the past 12 months, did the food you bought not last and you didn't have the money to get more?: Often true Within the past 12 months, did you worry whether your food would run out before you got money to buy more?: Never true Do you have trouble paying for medicines?: No Do you have trouble getting transportation to medical appointments?: No Do you have trouble paying your heating and electricity bill?: No Do you have trouble taking care of your child, family member or friend?: No Do you have trouble with day-to-day activities such as bathing, preparing meals, shopping, managing finances, etc.?: No Are you currently unemployed and looking for a job?: No Are you interested in more education?: No Please select the resources that you would like help with: None Currently or been in a relationship where the following occur: No concerns reported THRIVE Score: 1 AUDIT C Alcohol Use Questionnaire (AUDIT-C) 1. How often do you have a drink containing alcohol?: Never Total Score: 0 BROCK-7 AMB Questionnaire BROCK-7 Date BROCK - 7 assessed: 02/13/24 Feeling nervous, anxious, or on edge: 1 = Several days Not being able to stop or control worryin = Not at all Worrying too much about different things: 0 = Not at all Trouble relaxin = Not at all Being so restless that it is hard to sit still: 0 = Not at all Becoming easily annoyed or irritable: 0 = Not at all Feeling afraid as if something awful might happen: 0 = Not at all Total BROCK-7 score (0-4 normal; 5-9 mild; 10-14 moderate; 15-21 severe): 1 Source: Developed by Drs. Miko Frias, Deja Herrera, Warner Payton and colleagues, with an educational zia from [employer]. BROCK-7 Assessment Billing BROCK-7 Assessment Tool: BROCK-7 Assessment 96047 Review of Systems Const Denies body aches, Denies headache(s) and Denies weakness Eyes Details: Sees Dr. Paul Reports requires corrective lenses ENT Details: Sees her dentist every 8 months Denies dizziness, Denies headache(s) and Denies nasal congestion Card Denies chest pain, Denies lightheadedness and Denies dyspnea Resp Denies chest congestion, Denies cough and Denies dyspnea GI Denies abdominal pain, Denies change in bowel habits and Denies heartburn Reports as per HPI and Denies dysuria Musc Denies arthralgias, Denies joint swelling and Reports stiffness Skin/Breast Denies breast pain, Denies breast mass and Denies rash Neuro Denies dizziness, Denies headache(s) and Denies weakness Psych Reports no additional complaints Endo Reports no additional complaints Arvind/Lymph Reports no additional complaints Aller/Immun Reports seasonal rhinorrhea Physical exam (Primary Care) Vital Signs: Last Vital Signs Pulse 67 02/13/24 14:26 BP 140/60 H 02/13/24 14:26 Pulse Ox 96 02/13/24 14:26 Oxygen Delivery Method Room Air 02/13/24 14:26 BMI result Body Mass Index 18.4 Tobacco/Smoking Status: Tobacco use Status Tobacco use date assessed 02/13/24 02/13/24 14:29 Patient Tobacco Use Status Never used Tobacco 02/13/24 14:29 e-Cigarette/Vaping Use Never Used 02/13/24 14:29 PHQ-9: PHQ-9 Score PHQ-9: Total score 1 02/13/24 14:57 Depression Screening Interpretation: Negative Thrive Assessment: Date of Thrive Assessment Date Thrive assessed 02/06/24 02/13/24 14:29 Currently or been in a relationship where the following occur: No concerns reported Advance Care Planning discussion: Completed/Scanned Date of discussion: 02/13/24 Who was present: Patient Forms completed: Health Care Proxy and MOLST Time spent: 16-45 minutes Actual minutes spent: 16 Const General: no acute distress and alert Nutritional Appearance: average body habitus Orientation/consciousness: patient oriented x3 Limitations: ambulation with cane HENMT Head: Yes normocephalic Mouth: Normal oral and palatal mucosa present, oropharynx normal and moist mucous membranes Eyes General: appearance normal, both eyes and all related structures Neck Neck: Yes full ROM, Yes no lymphadenopathy and Yes supple Resp Effort & Inspection: normal respiratory effort and able to speak in complete sentences Auscultation: clear to auscultation bilaterally Cardio Rate: regular rate Rhythm: regular rhythm Heart sounds: S1 normal heart sound present and S2 normal heart sound present GI Palpation (GI): Soft to palpation, nontender and no masses Auscultation: normal bowel sounds General: Yes no CVA tenderness Back/Spine/Pelvis Other: Kyphosis , no tenderness on palpation over spine Back: no CVA tenderness Skin General skin exam: no rashes or lesions noted and dry skin Neuro General: patient oriented x3, tone normal, moves all extremities, Normal light touch and pain sensation and no focal motor deficits Cranial nerves: Yes CN's II-XII intact bilaterally Cognition (Neuro): normal cognition Extrem General: Yes full ROM, Yes no joint enlargement, Yes no clubbing, cyanosis or edema and Yes no calf tenderness Psych Appearance: grossly normal and well kempt Mental Status: mental status grossly normal Speech and movement: Normal speech and movement present Affect: normal affect Results Reviewed Results Reviewed: Name: Delano Meadows Age/Sex: 83/F : 1940 Unit#: [id number] Attend Dr: Genet Parra MD Re02/06/24 Status: DEP REF Location: [facility] Disch: SPEC : [id number] MARISOL: 02/06/24 STATUS: COMP REQ : [id number] RECD: 02/06/[address]: Genet Parra MD COMP: 02/06/24 ENTERED: 02/06/[address] [facility] DR: ORDERED: Met Prof Fast, AST, ALT, Lipid Panel, Vitamin D 25-OH Test Result Flag Reference Sodium 139 135-145 mmol/L Potassium 3.8 3.3-5.1 mmol/L CL 103 96-108 mmol/L CO2 28 22-29 mmol/L Gap 12 12-20 BUN 14 9-16 mg/dL Creat 0.71 0.5-1.4 mg/dL EGFR > 60 NOTE: For -Japanese individuals, multiply the result by 1.210. Chronic Kidney Disease: Estimated GFR < 60 mL/min/1.73m2 Severe Kidney Disease: Estimated GFR < 15 mL/min/1.73m2 FBS 92 60-99 mg/dL CA 10.1 8.4-10.2 mg/dL AST (GOT) 24 5-31 U/L ALT (GPT) 15 0-31 U/L Triglyceride 52 <150 mg/dL Desirable Triglyceride: less than 150 mg/dL Borderline High Triglyceride 150-199 mg/dL High Triglyceride: 200-499 mg/dL Very High Triglyceride: greater than or equal to 5OO mg/dL Cholesterol 146 <200 mg/dL Desirable Cholesterol: less than 200 mg/dL Borderline High Cholesterol: 200-239 mg/dL High Cholesterol: greater than 239 mg/dL LDL Calculated 73 <100 mg/dL Desirable LDL: less than 100 mg/dL Near Optimal/Above Optimal LDL: 110-129 mg/dL Borderline High LDL: 130-159 mg/dL High LDL: 160-189 mg/dL Very High LDL: greater than or equal to 190 mg/dL HDL 63 >40 mg/dL Desirable HDL: greater than 40 mg/dL Note: This HDL assay may give artificially low results in patients with liver disease. Vit D 25-OH Tot 44.7 >30 ng/mL Health Based Reference Values* < 20 ng/mL Deficient 20-30 ng/mL Insufficient > 30 ng/mL Sufficient Coding Level of Care Code Est Pt Prev Care >65y(89193) Diagnoses Generalized anxiety disorder F41.1 Essential hypertension I10 Age-related osteoporosis without current pathological fracture M81.0 Osteoporosis type: age-related Presence of current pathological fracture: without current pathological fracture Advanced directives, counseling/discussion Z71.89 Annual visit for general adult medical examination with abnormal findings Z00.01 Increased frequency of urination R35.0 Additional Codes Vital Signs *Quality* - Advance Care Planning discussion: Completed/Scanned ([id number]) Vital Signs *Quality* - Time spent: 16-45 minutes ([id number]) PHQ-9 - 69344 - PHQ-9 Billing: Yes ([id number]) BROCK-7 Assessment Billing - BROCK-7 Assessment Tool: BROCK-7 Assessment 28062 ([id number]) Assessment & Plan Assessment & Plan (1) Generalized anxiety disorder: Code(s): F41.1 - Generalized anxiety disorder Category: Medical Plan: Prescription sent for alprazolam 0.25 mg taken once a day as needed only for acute anxiety attacks. (2) Essential hypertension: Code(s): I10 - Essential (primary) hypertension Category: Medical Plan: Blood pressure stable and controlled on amlodipine taken 5 mg once a day. Reinforced importance of following a low-salt diet and getting regular exercise (3) Osteoporosis: Comment: Patient refused treatment and further testing Code(s): M81.0 - Age-related osteoporosis without current pathological fracture Category: Medical Qualifiers: Osteoporosis type: age-related Presence of current pathological fracture: without current pathological fracture Qualified Code(s): M81.0 - Age-related osteoporosis without current pathological fracture Plan: Patient does not want to get any further testing nor does she want to start any treatment for osteoporosis. Fall precautions discussed with patient (4) Advanced directives, counseling/discussion: Code(s): Z71.89 - Other specified counseling Plan: Initiated the conversation about Advanced Directives. Advanced Directives help patients prepare for current and future decisions about their medical treatment and place of care. Discussed with patient that it is a process where a patients current condition and prognosis are reviewed, their wishes for information regarding their illness are elicited, and likely medical dilemmas are presented and options discussed. Healthcare proxy form and MOLST form completed today. These forms can be amended as needed, reviewed yearly and make changes as needed (5) Annual visit for general adult medical examination with abnormal findings: Code(s): Z00.01 - Encounter for general adult medical examination with abnormal findings Plan: Reviewed recent fasting lab results with patient. She sees Dr. Paul for her routine eye exam. Continue with taking calcium in diet and vitamin-D 3 at 2000 IU per cap once a day, in addition to doing regular exercises to help maintain good muscle tone and weight control. Still getting yearly mammograms, with last 1 done recently showing benign findings. She is up-to-date with all her vaccinations, and is due for her 2nd dose shingles vaccine (6) Increased frequency of urination: Code(s): R35.0 - Frequency of micturition Plan: Will check urinalysis with reflex culture and sensitivity Orders: Orders UA CC w/rflx Micro + Cult Today R35.0 - Frequency of micturition Medications: Refilled alprazolam (Xanax) 0.25 mg PO DAILY PRN 30 tabs 0RF anxiety attacks F41.1 - Generalized anxiety disorder
== END 2024-02-13 15:19 | disposition home or self-care (01) ==
LOC: HO.HMCC 14:02
PROVIDERS: PCP Internal Medicine; Visit Provider Internal Medicine
DX: Z00.00 Encounter for general adult medical examination without abnormal findings (principal); F41.1 Generalized anxiety disorder; I10 Essential (primary) hypertension; M81.0 Age-related osteoporosis without current pathological fracture; Z71.89 Other specified counseling; R35.0 Frequency of micturition

== ENCOUNTER → 2024-02-13 14:01 | Outpatient (BNVA) | payer MEDICARE, SELFPAY | PROVIDERS: PCP Internal Medicine; Visit Provider Internal Medicine | DX: Z00.01 Encounter for general adult medical examination with abnormal findings (principal); F41.1 Generalized anxiety disorder; I10 Essential (primary) hypertension; M81.0 Age-related osteoporosis without current pathological fracture; R35.0 Frequency of micturition; Z71.89 Other specified counseling | CPT/HCPCS: 96127; 99397; 99497 ==

== ENCOUNTER 2024-02-14 08:45 | Outpatient (REF) | payer MEDICARE, SELFPAY | END 2024-02-14 08:46 | disposition home or self-care (01) | LOC: HO.HMGCLDS 08:45 | PROVIDERS: PCP Internal Medicine; Visit Provider Internal Medicine | DX: Z13.89 Encounter for screening for other disorder (principal) ==

== ENCOUNTER 2024-02-15 07:00 | Outpatient (REF) | payer MEDICARE, SELFPAY ==
[2024-02-15 11:30] LABS: Appearance Urine Clear; Color Urine Yellow; Glucose Urine UA Negative (Negative); Leukocyte Esterase Urine Negative (Negative); Nitrite Urine Negative (Negative); PH 7.5 (5.0-9.0); UMIC TRIGGER UACC YES; Urine Blood Trace (Negative); Urine Ketones Negative (Negative); Urine Protein Negative (Neg-Trace)
[2024-02-15 11:36] LABS: Bacteria Urine None Seen (None Seen); Hyaline Casts Urine 0-2 /LPF (0-2); Squamous Epithelial Cell Urine 0-2 /HPF (0-2); WBC Urine 0-5 /HPF (0-5)
== END 2024-02-15 07:01 | disposition home or self-care (01) ==
LOC: HO.HMGCLNP 07:00
PROVIDERS: PCP Internal Medicine; Visit Provider Internal Medicine
DX: R35.0 Frequency of micturition (principal)
CPT/HCPCS: 81001

== ENCOUNTER 2024-04-17 11:21 | Outpatient (AMB) | payer MEDICARE, SELFPAY ==
--- NOTE | 2024-04-17 11:37 | A.OFFVIS_ITS ---
Intake Visit Reasons: cystocele and nocturia Intake Note: Patient is present for CYSTOCELE AND NOCTURIA Urology Medication:NONE Antibiotic Allergy:PENICILLINS Blood Thinner:NONE TODAY'S PVR 0ML'S Recreational Therapy Aide Required: No Allergies Iodinated Contrast Media [IV CONTRAST] Allergy (Severe, Verified 04/17/24 11:37) SEVERE VOMITING-SHELLFISH ALLERGY mold [MOLD] Allergy (Severe, Verified 04/17/24 11:37) PASSES OUT shellfish derived [SHELLFISH DERIVED] Allergy (Severe, Verified 04/17/24 11:37) VOMITING Penicillins [PENICILLINS] Allergy (Intermediate, Verified 04/17/24 11:37) RASH penicillin V Allergy (Unknown, Verified 04/17/24 11:37) HIVES ENVIRONMENTAL Allergy (Intermediate, Uncoded 04/17/24 11:37) HAYFEVER IV Dye Allergy (Unknown, Uncoded 04/17/24 11:37) shortness of breath shelfish Allergy (Unknown, Uncoded 04/17/24 11:37) vomiting, indigestion Medication List - Last Reconciled 04/17/24 by Stacia Bey MD alprazolam (Xanax) 0.25 mg PO DAILY PRN amlodipine 5 mg PO DAILY zsuwnmfcnhpk-hqfp-feibg acid 18-400 mg-mcg (Centrum Women) 1 tab PO DAILY nitrofurantoin monohyd/m-cryst 100 mg (Macrobid) 100 mg PO BID PFSH Medical History Colonoscopy refused Generalized anxiety disorder Essential hypertension Osteoporosis Fracture of femoral neck, left Surgical History History of cholecystectomy History of appendectomy History of tonsillectomy and adenoidectomy History of left hip hemiarthroplasty Social History Housing: House Patient Tobacco Use Status: Never used Tobacco e-Cigarette/Vaping Use: Never Used service: No Current occupational status: retired Cognitive needs: No Hearing needs: No Vision needs: Yes Office Procedures Post Void Residual Post Residual Void Post Void Residual (PVR): 0 [id number]-[id number] Void Residual by ultrasound Assessment & Plan Assessment & Plan (1) Complete uterovaginal prolapse: Code(s): N81.3 - Complete uterovaginal prolapse Category: Medical (2) Right flank discomfort: Code(s): R10.9 - Unspecified abdominal pain Category: Medical (3) Kidney stone: Code(s): N20.0 - Calculus of kidney Category: Medical (4) UTI (urinary tract infection): Code(s): N39.0 - Urinary tract infection, site not specified Category: Medical Orders: Orders AMB Intravaginal Support Device Insertion Today N81.3 - Complete uterovaginal prolapse Medications: New nitrofurantoin monohyd/m-cryst 100 mg (Macrobid) must administer with a meal/food 100 mg PO BID 14 caps 0RF Coding Diagnoses Complete uterovaginal prolapse N81.3 Right flank discomfort R10.9 Kidney stone N20.0 UTI (urinary tract infection) N39.0 CPT Codes Post Residual Void - PVR CPT Code: 72381-Duxn Void Residual by ultrasound ([id number])
== END 2024-04-17 12:49 | disposition home or self-care (01) ==
PROVIDERS: PCP Internal Medicine; Visit Provider Urology
DX: Z13.9 Encounter for screening, unspecified (principal)

== ENCOUNTER 2024-04-17 11:21 | Outpatient (REF) | payer MEDICARE, SELFPAY | END 2024-04-17 11:22 | disposition home or self-care (01) | LOC: HO.LAB 11:21 | PROVIDERS: PCP Internal Medicine; Visit Provider Urology | DX: N39.0 Urinary tract infection, site not specified (principal); N81.3 Complete uterovaginal prolapse; R10.9 Unspecified abdominal pain; N20.0 Calculus of kidney; R35.1 Nocturia | CPT/HCPCS: 51798; 57160; 81003; 87086; 87088; 87186; 99202 ==

== ENCOUNTER 2024-07-17 11:46 | Outpatient (AMB) | payer MEDICARE, SELFPAY ==
--- NOTE | 2024-07-17 12:31 | MHC.OFFVIS ---
Intake Visit Reasons: 3 month follow up/ CT Allergies Iodinated Contrast Media [IV CONTRAST] Allergy (Severe, Verified 04/17/24 11:37) SEVERE VOMITING-SHELLFISH ALLERGY mold [MOLD] Allergy (Severe, Verified 04/17/24 11:37) PASSES OUT shellfish derived [SHELLFISH DERIVED] Allergy (Severe, Verified 04/17/24 11:37) VOMITING Penicillins [PENICILLINS] Allergy (Intermediate, Verified 04/17/24 11:37) RASH penicillin V Allergy (Unknown, Verified 04/17/24 11:37) HIVES ENVIRONMENTAL Allergy (Intermediate, Uncoded 04/17/24 11:37) HAYFEVER IV Dye Allergy (Unknown, Uncoded 04/17/24 11:37) shortness of breath shelfish Allergy (Unknown, Uncoded 04/17/24 11:37) vomiting, indigestion HPI Comments Details: 07/17/24-- History of Present Illness The patient is an 83-year-old female presenting with urinary incontinence ensuing the placement of a pessary for vaginal prolapse. The leakage occurs continuously without the need to urinate, and it has been present since the pessary insertion. Despite engaging in Kegel exercises with some improvement, the leakage remains problematic, impacting her daily activities. Her condition is further complicated by exposure to cold environments provoking coughing, which seems to exacerbate the urinary symptoms. The patient has a background of successful lithotripsy for kidney stones but had adverse cognitive symptoms, possibly related to anesthesia. Her prior experience of hip fracture surgery sans significant cardiac issues is noteworthy, although she experienced temporary memory problems post-surgery. Given her medication sensitivity, she expresses concerns about trying new pharmaceuticals. 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 The patient expressed concern about medication sensitivity and the financial burden associated with medication. I explored the option of a bladder spasm medication to relieve leakage but acknowledged her concerns. We agreed to continue Kegel exercises and monitor urinary symptoms. I explained that the pessary must be cleaned and possibly replaced every three months, and it's vital to perform regular follow-ups. I addressed the patient?s concerns about cold-induced coughing and her previous negative experiences with diagnostic procedures. Plan The management plan involves maintaining diligent Kegel exercises while avoiding new medications due to sensitivity concerns. Regular pessary maintenance every three months is crucial to addressing her incontinence. A CAT scan is scheduled to survey her renal condition, ensuring to review and discuss findings via a phone consultation when available. The plan also involves environmental precaution measures to mitigate cold exposure impacts, given her history of exacerbated symptoms in such conditions. Close follow-up will occur as scheduled, aligning with her continued care needs. Patient Instructions - Continue performing daily Kegel exercises as discussed. - Schedule an appointment every three months for pessary cleaning and replacement. - Be aware of cold environments, and dress warmly to reduce coughing and leaking. - Await contact regarding the CAT scan results for further instructions. - Contact the office if symptoms worsen or if there are any new concerns. - Report any adverse reactions or changes in your condition promptly. Patient was informed and verbally consented to the use of an ambient scribe for clinic note documentation during this visit. 04/17/24--Delano is an 83 year old female for evaluation vaginal prolapse. She complains of right flank pain, she states she was treated for kidney stones in the past and thinks she may have another kidney stone. She initially stated she could not give a urine sample. Vaginal exam- uterovaginal prolapse, sized for and pessary placed. The patient was able to void after pessary support. UA- nitrite positive. Will empiracally start antiobics, urine c/s sentl. Will check kidneys- renal US [facility] Medical History Colonoscopy refused Generalized anxiety disorder Essential hypertension Osteoporosis Fracture of femoral neck, left Surgical History History of cholecystectomy History of appendectomy History of tonsillectomy and adenoidectomy History of left hip hemiarthroplasty Social History Housing: House Patient Tobacco Use Status: Never used Tobacco e-Cigarette/Vaping Use: Never Used service: No Current occupational status: retired Cognitive needs: No Hearing needs: No Vision needs: Yes Review of Systems Const All systems reviewed & are unremarkable except as noted in HPI and below Reports no additional complaints Eyes Reports no additional complaints ENT Reports no additional complaints Card Reports no additional complaints Resp Reports no additional complaints GI Reports no additional complaints Reports as per HPI Musc Reports no additional complaints Skin/Breast Reports system reviewed and no additional complaints, except as documented Neuro Reports no additional complaints Psych Reports no additional complaints Endo Reports no additional complaints Arvind/Lymph Reports no additional complaints Aller/Immun Reports no additional complaints Results AMB Urinalysis, Automated UA Leukoctes 0 Celio/uL Last Edit by Makayla Calvillo on 07/17/24 14:14 UA Nitrite Negative Last Edit by Makayla Calvillo on 07/17/24 14:14 UA Urobilinogen 0.2 mg/dL Last Edit by Makayla Calvillo on 07/17/24 14:14 UA Protein 0 mg/dL Last Edit by Makayla Calvillo on 07/17/24 14:14 UA pH 6.5 Last Edit by Makayla Calvillo on 07/17/24 14:14 UA Blood 25 Josh/uL Last Edit by Makayla Calvillo on 07/17/24 14:14 UA Specific [place] 1.005 Last Edit by Makayla Calvillo on 07/17/24 14:14 UA Ketone Negative Last Edit by Makayla Calvillo on 07/17/24 14:14 UA Bilirubin 0 mg/dL Last Edit by Makayla Calvillo on 07/17/24 14:14 UA Glucose 0 mg/dL Last Edit by Makayla Calvillo on 07/17/24 14:14 Results Reviewed Results Reviewed: Laboratory Last Values Urine pH (Auto) 6.5 07/17/24 13:54 Specific [place] (Auto) 1.005 07/17/24 13:54 Urine Protein (Auto) 0 mg/dL 07/17/24 13:54 Glucose (UA)(Auto) 0 mg/dL 07/17/24 13:54 Urine Ketones (Auto) Negative 07/17/24 13:54 Urine Blood (Auto) 25 Josh/uL 07/17/24 13:54 Urine Nitrite (Auto) Negative 07/17/24 13:54 Urine Bilirubin (Auto) 0 mg/dL 07/17/24 13:54 Urine Urobilinogen (Auto) 0.2 mg/dL 07/17/24 13:54 Leukocyte Esterase (Auto) 0 Celio/uL 07/17/24 13:54 Assessment & Plan Assessment & Plan (1) History of kidney stones: Code(s): Z87.442 - Personal history of urinary calculi Category: Medical Orders: Orders CT kidney stone Today Z87.442 - Personal history of urinary calculi AMB Urinalysis Automated Today Z13.9 - Encounter for screening, unspecified Coding Diagnoses History of kidney stones Z87.442
--- OUTSIDE RECORDS SUMMARY | 2024-07-17 12:44 | XMS_ITS ---
Author Organization [facility] Support Name Relationship Address Phone [facility] [address] [place], [place] [id number] Delano Meadows Guarantor Same as Above [place] Personal Relationship Same as Ab ríos Allergies and adverse reactions Code CodeSystem Substance Reaction Severity StartDate Concern Status Shell Fish Unknown 02/29/2016 active Seasonal Unknown 02/29/2016 active RAGWEED Unknown 03/02/2016 active 7984 RXNORM Penicillin Unknown 02/29/2016 active Mold Unknown 02/29/2016 active IV contrast dye Unknown 03/02/2016 activ e 5933 RXNORM Iodine Unknown 03/02/2016 active Immunizations Immunization Status Vaccine Details Vaccine Code CodeSystem Tacho e Notes Influenza completed Influenza, split virus, trivalent, injectable, contains preservative 141 CVX created date: 03/03/2016 administered date: 01/09/2016 PCV13 (Pneumococcal Conjugate)Vaccine completed pneumococcal conjugate vaccine, 13 valent 133 CVX created date: 03/03/2016 administered date: 02/27/2016 Mental Status Section Date Assessment Total Score Description 03/10/2016 BIMS 15 cognitively int act CAM 0 No delirium ind icated PHQ-9 00 Problems Problem # Description Date of onset Resolved Date Code CodeSystem Concern Status 1 CALCULUS OF KIDNEY 02/29/[address] active 2 ELEVATED BLOOD-PRESSURE READING, WITHOUT DIAGNOSIS OF HYPERTENSION 02/29/[address] active 3 FRACTURE OF UNSPECIFIED PART OF NECK OF LEFT FEMUR, SUBSEQUENT ENCOUNTER FOR CLOSED FRACTURE WITH ROUTINE HEALING 02/29/[address] active 4 GENERALIZED ANXIETY DISORDER 02/29/[address] active 5 MUSCLE WEAKNESS (GENERALIZED) 02/29/[address] active 6 PRESENCE OF LEFT ARTIFICIAL HIP JOINT 02/29/[address] active 7 UNSPECIFIED ABNORMALITIES OF GAIT AND MOBILITY 02/29/[address] active 8 UNSPECIFIED ASTHMA, UNCOMPLICATED 02/29/[address] active Reason for Referral No Reasons for Referral Entered Social History Social History Observation Description Start Date End Date Code Code System Current Smoking Status Tobacco smoking consumption unknown 973120494 SNOMED CT Sex Assigned At Female 1940 71907-1 [facility] Vital Signs Code Code System Vitals Name Values and Units Timing Information 9279-1 [facility] Respiratory Rate Value=18.0 Units=/m in 03/01/2016 8462-4 [facility] Blood Pressure-Diastolic Value=50 Un its=mmHg 03/01/2016 8480-6 [facility] Blood Pressure-Systolic Wjwrh=101 Un its=mmHg 03/01/2016 8310-5 [facility] Body Temperature Value=97.5 Units=?? F 03/01/2016 8867-4 [facility] Heart rate Value=90.0 Units=/min 98239-6 [facility] O2 % BldC Oximetry Value=97.0 Units= % 03/01/2016 74694-3 [facility] Weight Hcnoh=173.0 Units=Lbs 8302-2 [facility] Height Value=63.0 Units=Inches 03/01/2016 64908-5 [facility] Pain Level Value=6.0 03/01/2016
== END 2024-07-17 13:13 | disposition home or self-care (01) ==
LOC: HO.HUSH 11:47
PROVIDERS: PCP Internal Medicine; Visit Provider Urology
DX: Z13.9 Encounter for screening, unspecified (principal)

== ENCOUNTER → 2024-07-17 11:46 | Outpatient (BNVA) | payer MEDICARE, SELFPAY | PROVIDERS: PCP Internal Medicine; Visit Provider Urology | DX: N81.3 Complete uterovaginal prolapse (principal); N20.0 Calculus of kidney; R32 Unspecified urinary incontinence; Z87.442 Personal history of urinary calculi | CPT/HCPCS: 81003; 99212 ==

== ENCOUNTER 2024-07-30 11:29 | Outpatient (AMB) | payer MEDICARE, SELFPAY ==
[2024-07-30 11:44] VITALS: BP 148/60; PULSE 56; RESP 16; TEMP 36.6; O2SAT 96; BMI 17.8
--- NOTE | 2024-07-30 11:44 | A.OFFPC_ITS ---
Vital Signs 07/30/24 11:44 Height 5 ft 4 in Weight 104 lb BMI 17.8 BP 148/60 H Blood Pressure Location Lt brachial Position Sitting Respiration 16 Pulse 56 Temp 97.9 F Temp Source Oral Pulse Oximetry (%) 96 Oxygen Delivery Method Room Air Intake Visit Reasons: 5 months follow up Intake Note: Pt is here today for her 5mo. f/u Allergies Iodinated Contrast Media [IV CONTRAST] Allergy (Severe, Verified 07/30/24 11:54) SEVERE VOMITING-SHELLFISH ALLERGY mold [MOLD] Allergy (Severe, Verified 07/30/24 11:54) PASSES OUT shellfish derived [SHELLFISH DERIVED] Allergy (Severe, Verified 07/30/24 11:54) VOMITING Penicillins [PENICILLINS] Allergy (Intermediate, Verified 07/30/24 11:54) RASH penicillin V Allergy (Unknown, Verified 07/30/24 11:54) HIVES ENVIRONMENTAL Allergy (Intermediate, Uncoded 07/30/24 11:54) HAYFEVER IV Dye Allergy (Unknown, Uncoded 07/30/24 11:54) shortness of breath shelfish Allergy (Unknown, Uncoded 07/30/24 11:54) vomiting, indigestion Medication List - Last Reconciled 07/30/24 by Genet Parra MD alprazolam (Xanax) 0.25 mg PO DAILY PRN amlodipine 5 mg PO DAILY dippivdlrpcz-ioot-aqdtu acid 18-400 mg-mcg (Centrum Women) 1 tab PO DAILY Tobacco use date assessed: 07/30/24 Fall risk assessment: No Falls in past year Last assessed Fall Risk: 07/30/24 Dental Screening Dental Screen Date: 07/30/24 Did you have a dental visit in the last 12 months?: Yes Did you have a dental problem in the last 6 months where you did not have access to dental care?: No Was dental information given to patient?: Patient has dentist HPI 5 months follow up HPI Details 83-year-old lady with hypertension, curr ently on amlodipine 5 mg daily, generalized anxiety disorder , here today for follow-up. Has been feeling well, with no new complaints at present time. Rarely needing to take her alprazolam. [facility] Medical History (Updated 08/03/24 @ 03:57 by Genet Parra MD) Mobitz type 2 second degree atrioventricular block Colonoscopy refused Generalized anxiety disorder Essential hypertension Osteoporosis Fracture of femoral neck, left Surgical History History of cholecystectomy History of appendectomy History of tonsillectomy and adenoidectomy History of left hip hemiarthroplasty Social History Housing: House Patient Tobacco Use Status: Never used Tobacco e-Cigarette/Vaping Use: Never Used service: No Current occupational status: retired Cognitive needs: No Hearing needs: No Vision needs: Yes Questionnaire PHQ-9 Over the last 2 weeks, how often have you been bothered by any of the following problems? 1. Little interest or pleasure in doing things: not at all 2. Feeling down, depressed, or hopeless: not at all 3. Trouble falling or staying asleep, or sleeping too much: not at all 4. Feeling tired or having little energy: several days 5. Poor appetite or overeating: not at all 6. Feeling bad about yourself - or that you are a failure or have let yourself or your family down: not at all 7. Trouble concentrating on things, such as reading the newspaper or watching television: not at all 8. Moving or speaking so slowly that other people could have noticed. Or the opposite - being so fidgety or restless that you have been moving around a lot more than usual: not at all 9. Thoughts that you would be better off or of hurting yourself in some way: not at all Total score: 1 Depression Screening Interpretation: Negative Depression Screening Done: Yes 18706 - PHQ-9 Billing: Yes Source: Developed by Drs. Mkio Frias, Deja Herrera, Warner Payton and colleagues, with an educational zia from [employer]. Thrive Questionnaire Date Thrive assessed: 07/30/24 I am a: Patient What is your living situation today?: I have a steady place to live Within the past 12 months, did the food you bought not last and you didn't have the money to get more?: Never true Within the past 12 months, did you worry whether your food would run out before you got money to buy more?: Never true Do you have trouble paying for medicines?: No Do you have trouble getting transportation to medical appointments?: No Do you have trouble paying your heating and electricity bill?: No Do you have trouble taking care of your child, family member or friend?: No Do you have trouble with day-to-day activities such as bathing, preparing meals, shopping, managing finances, etc.?: No Are you currently unemployed and looking for a job?: No Are you interested in more education?: No Please select the resources that you would like help with: None Currently or been in a relationship where the following occur: No concerns reported THRIVE Score: 0 AUDIT C Alcohol Use Questionnaire (AUDIT-C) 1. How often do you have a drink containing alcohol?: Never Total Score: 0 BROCK-7 AMB Questionnaire BROCK-7 Date BROCK - 7 assessed: 07/30/24 Feeling nervous, anxious, or on edge: 0 = Not at all Not being able to stop or control worryin = Not at all Worrying too much about different things: 0 = Not at all Trouble relaxin = Not at all Being so restless that it is hard to sit still: 0 = Not at all Becoming easily annoyed or irritable: 0 = Not at all Feeling afraid as if something awful might happen: 0 = Not at all Total BROCK-7 score (0-4 normal; 5-9 mild; 10-14 moderate; 15-21 severe): 0 Source: Developed by Drs. Miko Frias, Deja Herrera, Warner Payton and colleagues, with an educational zia from [employer]. BROCK-7 Assessment Billing BROCK-7 Assessment Tool: BROCK-7 Assessment 99576 Review of Systems Const Denies body aches, Denies headache(s) and Denies weakness Eyes Details: Sees Dr. Paul Reports requires corrective lenses ENT Details: Sees her dentist every 8 months Denies dizziness, Denies headache(s) and Denies nasal congestion Card Denies chest pain, Denies lightheadedness and Denies dyspnea Resp Denies cough and Denies dyspnea GI Denies abdominal pain, Denies change in bowel habits and Denies heartburn Reports as per HPI and Denies dysuria Musc Denies arthralgias, Denies joint swelling and Reports stiffness Skin/Breast Denies breast pain, Denies breast mass and Denies rash Neuro Denies dizziness, Denies headache(s) and Denies weakness Psych Reports no additional complaints Endo Reports no additional complaints Arvind/Lymph Reports no additional complaints Aller/Immun Reports seasonal rhinorrhea Physical exam (Primary Care) Vital Signs: Last Vital Signs Temp 97.9 F 07/30/24 11:44 Pulse 56 07/30/24 11:44 Resp 16 07/30/24 11:44 BP 148/60 H 07/30/24 11:44 Pulse Ox 96 07/30/24 11:44 Oxygen Delivery Method Room Air 07/30/24 11:44 BMI result Body Mass Index 17.8 Tobacco/Smoking Status: Tobacco use Status Tobacco use date assessed 07/30/24 07/30/24 11:49 Patient Tobacco Use Status Never used Tobacco 07/30/24 11:49 e-Cigarette/Vaping Use Never Used 07/30/24 11:49 PHQ-9: PHQ-9 Score PHQ-9: Total score 1 07/30/24 12:48 Depression Screening Interpretation: Negative Thrive Assessment: Date of Thrive Assessment Date Thrive assessed 02/06/24 07/30/24 11:49 Currently or been in a relationship where the following occur: No concerns repo rted Const General: no acute distress and alert Orientation/consciousness: patient oriented x3 Limitations: ambulation with cane HENMT Head: Yes normocephalic Mouth: moist mucous membranes Eyes General: appearance normal, both eyes and all related structures Neck Neck: Yes full ROM, Yes no lymphadenopathy and Yes supple Resp Effort & Inspection: normal respiratory effort and able to speak in complete sentences Auscultation: clear to auscultation bilaterally Cardio Other: Irregular heart rate noted EKG done showed Mobitz type 2 av block, new as compared to previous EKGs Heart sounds: S1 normal heart sound present and S2 normal heart sound present GI Palpation (GI): Soft to palpation, nontender and no masses Auscultation: normal bowel sounds General: Yes no CVA tenderness Back/Spine/Pelvis Other: Kyphosis , no tenderness on palpation over spine Back: no CVA tenderness Skin General skin exam: no rashes or lesions noted and dry skin Neuro General: patient oriented x3, tone normal, moves all extremities, Normal light touch and pain sensation and no focal motor deficits Cranial nerves: Yes CN's II-XII intact bilaterally Cognition (Neuro): normal cognition Extrem General: Yes full ROM, Yes no joint enlargement, Yes no clubbing, cyanosis or edema and Yes no calf tenderness Psych Appearance: grossly normal and well kempt Mental Status: mental status grossly normal Speech and movement: Normal speech and movement present Affect: normal affect Coding Level of Care Code Est Pt Level 4 (61956) Complex EM visit Add On G2211 Diagnoses Mobitz type 2 second degree atrioventricular block I44.1 Essential hypertension I10 Generalized anxiety disorder F41.1 Additional Codes PHQ-9 - 61658 - PHQ-9 Billing: Yes ([id number]) BROCK-7 Assessment Billing - BROCK-7 Assessment Tool: BROCK-7 Assessment 86084 ([id number]) Assessment & Plan Assessment & Plan (1) Mobitz type 2 second degree atrioventricular block: Code(s): I44.1 - Atrioventricular block, second degree Category: Medical Plan: Stat referral to Cardiology ordered (2) Essential hypertension: Code(s): I10 - Essential (primary) hypertension Category: Medical Plan: Continue amlodipine (3) Generalized anxiety disorder: Code(s): F41.1 - Generalized anxiety disorder Category: Medical Plan: Continue alprazolam as needed Orders: Orders Basic Metabolic Panel Fasting 07/30/24 F41.1 - Generalized anxiety disorder, I10 - Essential (primary) hypertension, M81.0 - Age-related osteoporosis without current pathological fracture, R53.83 - Other fatigue Aspartate Amino Transferase 07/30/24 F41.1 - Generalized anxiety disorder, I10 - Essential (primary) hypertension, M81.0 - Age-related osteoporosis without current pathological fracture, R53.83 - Other fatigue Alanine Aminotransferase 07/30/24 F41.1 - Generalized anxiety disorder, I10 - Essential (primary) hypertension, M81.0 - Age-related osteoporosis without current pathological fracture, R53.83 - Other fatigue Lipid Panel 07/30/24 F41.1 - Generalized anxiety disorder, I10 - Essential (primary) hypertension, M81.0 - Age-related osteoporosis without current pathological fracture, R53.83 - Other fatigue Vitamin B12 and Folate 07/30/24 F41.1 - Generalized anxiety disorder, I10 - Essential (primary) hypertension, M81.0 - Age-related osteoporosis without current pathological fracture, R53.83 - Other fatigue Complete Blood Count Auto Diff 07/30/24 F41.1 - Generalized anxiety disorder, I10 - Essential (primary) hypertension, M81.0 - Age-related osteoporosis without current pathological fracture, R53.83 - Other fatigue Vitamin D 25-OH Total 07/30/24 F41.1 - Generalized anxiety disorder, I10 - Essential (primary) hypertension, M81.0 - Age-related osteoporosis without current pathological fracture, R53.83 - Other fatigue AMB EKG-In Office 07/30/24 I49.9 - Cardiac arrhythmia, unspecified Referrals Cardiology Referral I44.1 - Atrioventricular block, second degree
== END 2024-07-30 13:08 | disposition home or self-care (01) ==
LOC: HO.HMCC 11:30
PROVIDERS: PCP Internal Medicine; Visit Provider Internal Medicine
DX: I44.1 Atrioventricular block, second degree (principal); I10 Essential (primary) hypertension; F41.1 Generalized anxiety disorder

== ENCOUNTER → 2024-07-30 11:29 | Outpatient (BNVA) | payer MEDICARE, SELFPAY | PROVIDERS: PCP Internal Medicine; Visit Provider Internal Medicine | DX: I10 Essential (primary) hypertension (principal); F41.1 Generalized anxiety disorder; I44.1 Atrioventricular block, second degree; Z79.899 Other long term (current) drug therapy | CPT/HCPCS: 96127; 99212 ==

== ENCOUNTER 2024-09-16 14:39 | Outpatient (AMB) | payer MEDICARE, SELFPAY ==
--- NOTE | 2024-09-16 15:10 | MHC.OFFVIS ---
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 Required: No Accompanied by: Self / Same As Patient Allergies Iodinated Contrast Media [IV CONTRAST] Allergy (Severe, Verified 07/30/24 11:54) SEVERE VOMITING-SHELLFISH ALLERGY mold [MOLD] Allergy (Severe, Verified 07/30/24 11:54) PASSES OUT shellfish derived [SHELLFISH DERIVED] Allergy (Severe, Verified 07/30/24 11:54) VOMITING Penicillins [PENICILLINS] Allergy (Intermediate, Verified 07/30/24 11:54) RASH penicillin V Allergy (Unknown, Verified 07/30/24 11:54) HIVES ENVIRONMENTAL Allergy (Intermediate, Uncoded 07/30/24 11:54) HAYFEVER IV Dye Allergy (Unknown, Uncoded 07/30/24 11:54) shortness of breath shelfish Allergy (Unknown, Uncoded 07/30/24 11:54) vomiting, indigestion Medication List - Last Reconciled 09/16/24 by Demario Watts MD alprazolam (Xanax) 0.25 mg PO DAILY PRN amlodipine 5 mg PO DAILY gyayefgokvwc-votv-bnqqq acid 18-400 mg-mcg (Centrum Women) 1 tab PO DAILY HPI Comments Details: [age] year female who is here for palpitations and abnormal EKG. EKG previously has shown premature atrial complexes. EKGs in the office is showing premature atrial complexes and PVCs. She has elevated blood pressure but is adamant that blood pressure is elevated when she comes to office visits and at home her heart rate is in his 60s and overall blood pressures have not been elevated. EKGs showing some left ventricular hypertrophy. No chest discomfort or shortness of breath. She has a cracked tooth and some dental infection and will need dental extraction. She has been told that she may need general anesthesia. She is quite very about it and previously had some memory problems after receiving anesthesia in the past. [facility] Medical History Mobitz type 2 second degree atrioventricular block Colonoscopy refused Generalized anxiety disorder Essential hypertension Osteoporosis Fracture of femoral neck, left Surgical History History of cholecystectomy History of appendectomy History of tonsillectomy and adenoidectomy History of left hip hemiarthroplasty Social History Housing: House Patient Tobacco Use Status: Never used Tobacco e-Cigarette/Vaping Use: Never Used service: No Current occupational status: retired Cognitive needs: No Hearing needs: No Vision needs: Yes Review of Systems Const Denies chills, Denies fatigue, Denies fever(s), Denies frequent falls, Denies weakness, Denies weight gain and Denies weight loss ENT Denies dizziness Card Denies chest pain, Denies leg edema, Denies lightheadedness, Denies palpitations, Denies dyspnea, Denies dyspnea on exertion and Denies orthopnea Resp Denies cough, Denies dyspnea and Denies dyspnea on exertion GI Denies bloating and Denies change in bowel habits Musc Denies muscle weakness, Denies numbness and Denies tingling Neuro Denies dizziness, Denies frequent falls, Denies numbness, Denies tingling and Denies weakness Endo Denies fatigue and Denies palpitations Physical Exam Vital Signs: Last Vital Signs Pulse 110 H 09/16/24 15:13 BP 146/72 H 09/16/24 15:13 BMI result Body Mass Index 17.5 GENERAL APPEARANCE: in no acute distress, pleasant. NECK: no carotid bruit, no jugular venous distention. SKIN: no suspicious lesions, warm and dry. HEART: no murmurs, there is a slight pause after every 3rd heartbeat. LUNGS: clear to auscultation bilaterally. ABDOMEN: soft, nontender. EXTREMITIES: no edema. PERIPHERAL PULSES: equal. NEUROLOGIC: No gross deficits, AAO X 3 Office Procedures EKG Details: Sinus tachycardia 110 beats per minute, premature atrial complexes and premature ventricular complexes, right axis deviation, ST-T changes probably related to hypertrophy. QTC 446 milliseconds. [id number], Complete Assessment & Plan Assessment & Plan (1) PAC (premature atrial contraction): Code(s): I49.1 - Atrial premature depolarization Category: Medical (2) PVC (premature ventricular contraction): Code(s): I49.3 - Ventricular premature depolarization Category: Medical (3) Essential hypertension: Code(s): I10 - Essential (primary) hypertension Category: Medical Plan Pleasant 81 year female who is here for abnormal ECG. ECG is showing premature atrial complexes and PVCs. She is saying that approximately 30 years ago 7 told her that she has abnormal heart rhythm and at that time she had skipped heartbeat after 3 heartbeats. She is showing the same pattern on her EKG at this point. It appears this pattern or abnormality is old. She does not have any significant symptoms but occasionally under stressful situation she gets some fluttering/palpitations. She has elevated blood pressure but is saying that she gets anxious when she comes to doctor's office and that plays a role in her elevated blood pressure and tachycardia. I have advised her to do echocardiography. If she has left ventricular hypertrophy then I think we may have to be aggressive with hypertension controlled. I have advised her to check blood pressure at home and keep a log. If I have to add a 2nd medication I would start her on carvedilol 6.25 mg twice a day which will help with hypertension and probably will also help control her heart rate. No ischemic symptoms currently. Thank you for allowing me to participate in the care of your patient. Please feel free to contact me if you have any questions. Orders: Orders CA echo transthoracic complete Today I49.3 - Ventricular premature depolarization Coding Level of Care Code New Pt Level 4 (55758) Complex EM visit Add On G2211 Diagnoses PAC (premature atrial contraction) I49.1 PVC (premature ventricular contraction) I49.3 Essential hypertension I10 CPT Codes EKG - CPT: 76190-[id number], Complete ([id number])
[2024-09-16 15:13] VITALS: BP 146/72; PULSE 110; BMI 17.5
== END 2024-09-16 15:49 | disposition home or self-care (01) ==
LOC: HO.HCS 14:40
PROVIDERS: PCP Internal Medicine; Visit Provider Internal Medicine Cardiovascular Disease
DX: I49.1 Atrial premature depolarization (principal); I49.3 Ventricular premature depolarization; I10 Essential (primary) hypertension
CPT/HCPCS: 93010; 99204; G2211

== ENCOUNTER → 2024-09-16 14:39 | Outpatient (BNVA) | payer MEDICARE, SELFPAY | PROVIDERS: PCP Internal Medicine; Visit Provider Internal Medicine Cardiovascular Disease | DX: I49.3 Ventricular premature depolarization (principal); I49.1 Atrial premature depolarization; I44.1 Atrioventricular block, second degree; I10 Essential (primary) hypertension | CPT/HCPCS: 93005; 99202 ==

== ENCOUNTER 2024-10-02 15:29 | Outpatient (REF) | payer MEDICARE, SELFPAY ==
--- NOTE | ~2024-10-02 | CT_ITS ---
EXAMINATION: CT ABDOMEN AND PELVIS WITHOUT CONTRAST CLINICAL INFORMATION: Z87.442 - Personal history of urinary calculi COMPARISON: CT abdomen and pelvis August 09, [address] chest February 25, 2016 TECHNIQUE: Multidetector volumetric imaging was performed from the superior aspect of the liver through the pubic symphysis. Sagittal and coronal reformatted images were obtained on the technologist's workstation. This CT examination was performed using dose optimization techniques as appropriate, variously including the following: *Automated exposure control *Adjustment of mA and/or kV according to patient size (this includes techniques or standardized protocols for targeted exams where dose is matched to indication/reason for exam; i.e. extremities or head) *Use of iterative reconstruction technique FINDINGS: LUNG BASES: Focal area of pleural thickening with angular margins and focal atelectasis is again seen in the anterolateral right lung base, not completely imaged on the current exam There is a new nodular density with air bronchogram in the anterior left base measuring 8 x 14 mm. There is focal pleural thickening deep to the costochondral junction of the anterior left rib. LIVER, GALLBLADDER, AND BILIARY TREE: The liver is normal in size, shape, and attenuation. No focal hepatic lesion or biliary ductal dilatation is present. Gallbladder is surgically absent. PANCREAS: Grossly unremarkable SPLEEN: Unremarkable. ADRENAL GLANDS: Unremarkable. KIDNEYS AND URETERS: There is malrotation of the right kidney which is situated with a horizontal long axis and the posterior renal pelvis. There are a few parenchymal calcifications in the kidneys. There is no hydronephrosis no left cholelithiasis is clearly present.. 2.2 cm simple renal cyst is redemonstrated in the mid lateral left kidney. At least 2 simple cyst are present in the right kidney. Distal ureters are secured by beam hardening artifact related to left total hip replacement hardware. BLADDER: Nearly empty. Grossly unremarkable. GASTROINTESTINAL TRACT: There is moderate diverticulosis. Appendix is not well-demonstrated. The patient has minimal intraperitoneal fat which somewhat limits evaluation of abdominal and pelvic contents. ABDOMINAL WALL: No significant hernia is appreciated. LYMPH NODES: Normal. VASCULAR: No aneurysm. Moderate atherosclerotic ossifications PELVIC VISCERA: Uterus and ovaries are nonvisualized. Ring-shaped back office medical assistant is present in the lower pelvis, likely a pessary. OSSEOUS STRUCTURES: There is mild dextroscoliosis of the lumbar spine and multilevel degenerative disc disease and facet arthropathy that is moderate to severe. There is moderate narrowing of the right hip joint space medially, and small marginal osteophytes. Total hip replacement on the left is not fully imaged to the femoral stem. It appears grossly unchanged in its orientation. CT/CT kidney stone IMPRESSION: In the anterior base of the left lower lobe there is a new 8 x 14 mm density with air bronchograms. This could represent round atelectasis or a new nodule. There is also increasing irregular densities in the anterior right lung base that could represent increased scarring and subsegmental atelectasis, incompletely imaged nodule is not ruled out. Follow-up screening CT chest without contrast. No kidney stones. Diverticulosis. Pessary Dextroscoliosis and moderate to severe degenerative changes in the lumbar spine. Fleischner guidelines were followed. Electronically signed by: Doni Ramirez MD 10/02/2024 05:27 PM EDT
== END 2024-10-02 15:30 | disposition home or self-care (01) ==
LOC: HO.CT 15:29
PROVIDERS: PCP Internal Medicine; Visit Provider Urology
DX: Z87.442 Personal history of urinary calculi (principal)
CPT/HCPCS: 74176

== ENCOUNTER → 2024-10-02 15:32 | Outpatient (BNV) | payer MEDICARE, SELFPAY | PROVIDERS: PCP Internal Medicine; Visit Provider Radiology Diagnostic Radiology | DX: N20.0 Calculus of kidney (principal) | CPT/HCPCS: 74176 ==

== ENCOUNTER 2024-10-16 11:28 | Outpatient (AMB) | payer MEDICARE, SELFPAY ==
--- NOTE | 2024-10-15 20:08 | A.OFFVIS_ITS ---
Intake Visit Reasons: 3m pessary maintenance Intake Note: Patient is present for 3m pessary maintanence Urology Medication:NONE Antibiotic Allergy:PENICILLINS Blood Thinner:NONE Inspector Agricultural Commodities Required: No Allergies Iodinated Contrast Media (IV CONTRAST) Allergy (Severe, Verified 10/16/24 12:03) SEVERE VOMITING-SHELLFISH ALLERGY mold (MOLD) Allergy (Severe, Verified 10/16/24 12:03) PASSES OUT shellfish derived (SHELLFISH DERIVED) Allergy (Severe, Verified 10/16/24 12:03) VOMITING Penicillins (PENICILLINS) Allergy (Intermediate, Verified 10/16/24 12:03) RASH penicillin V Allergy (Unknown, Verified 10/16/24 12:03) HIVES ENVIRONMENTAL Allergy (Intermediate, Uncoded 07/30/24 11:54) HAYFEVER IV Dye Allergy (Unknown, Uncoded 07/30/24 11:54) shortness of breath shelfish Allergy (Unknown, Uncoded 07/30/24 11:54) vomiting, indigestion HPI Comments Details: 10/16/24--pessary?? Has had kidney stones in the past with lithotripsy treatment 07/17/24-- History of Present Illness The patient is an 83-year-old female presenting with urinary incontinence post the placement of a pessary for vaginal prolapse. The leakage occurs continuously without the need to urinate, and it has been present since the pessary insertion. Despite engaging in Kegel exercises with some improvement, the leakage remains problematic, impacting her daily activities. Her condition is further complicated by coughing, which seems to exacerbate the urinary symptoms. H/O lithotripsy for kidney stones. Urinary Symptoms Review - History of a dropped bladder without prior incontinence - urinary incontinence post-pessary insertion - Incontinence possibly exacerbated by coughing and cold environment exposure - Nocturia Discussion Notes I discussed with the patient the ongoing urinary incontinence she is experiencing after the pessary insertion, likely due to weakened pelvic muscles. The patient expressed concern about medication sensitivity and the financial burden associated with medication. We agreed to continue Kegel exercises and monitor urinary symptoms. 04/17/24--Delano is an 83 year old female for evaluation vaginal prolapse. She complains of right flank pain, she states she was treated for kidney stones in the past and thinks she may have another kidney stone. She initially stated she could not give a urine sample. Vaginal exam- uterovaginal prolapse, sized for and pessary placed. The patient was able to void after pessary support. UA- nitrite positive. Will empiracally start antiobics, urine c/s sentl. Will check kidneys- renal US [facility] Medical History Mobitz type 2 second degree atrioventricular block Colonoscopy refused Generalized anxiety disorder Essential hypertension Osteoporosis Fracture of femoral neck, left Surgical History History of cholecystectomy History of appendectomy History of tonsillectomy and adenoidectomy History of left hip hemiarthroplasty Social History Housing: House Patient Tobacco Use Status: Never used Tobacco e-Cigarette/Vaping Use: Never Used service: No Current occupational status: retired Cognitive needs: No Hearing needs: No Vision needs: Yes Review of Systems Const All systems reviewed & are unremarkable except as noted in HPI and below Reports no additional complaints Eyes Reports no additional complaints ENT Reports no additional complaints Card Reports no additional complaints Resp Reports no additional complaints GI Reports no additional complaints Reports as per HPI Musc Reports no additional complaints Skin/Breast Reports system reviewed and no additional complaints, except as documented Neuro Reports no additional complaints Psych Reports no additional complaints Endo Reports no additional complaints Arvind/Lymph Reports no additional complaints Aller/Immun Reports no additional complaints Results AMB Urinalysis, Automated UA Leukoctes 125 Celio/uL Last Edit by Makayla Calvillo on 10/16/24 15:20 UA Nitrite Negative Last Edit by Makayla Calvillo on 10/16/24 15:20 UA Urobilinogen 3.5 mg/dL Last Edit by Makayla Calvillo on 10/16/24 15:20 UA Protein 0 mg/dL Last Edit by Makayla Calvillo on 10/16/24 15:20 UA pH 6.5 Last Edit by Makayla Calvillo on 10/16/24 15:20 UA Blood 25 Josh/uL Last Edit by Makayla Calvillo on 10/16/24 15:20 UA Specific [place] 1.005 Last Edit by Makayla Calvillo on 10/16/24 15:20 UA Ketone Negative Last Edit by Makayla Calvillo on 10/16/24 15:20 UA Bilirubin 0 mg/dL Last Edit by Makayla Calvillo on 10/16/24 15:20 UA Glucose 0 mg/dL Last Edit by Makayla Calvillo on 10/16/24 15:20 Assessment & Plan Assessment & Plan (1) History of kidney stones: Code(s): Z87.442 - Personal history of urinary calculi Category: Medical (2) Complete uterovaginal prolapse: Code(s): N81.3 - Complete uterovaginal prolapse Category: Medical (3) Kidney stone: Code(s): N20.0 - Calculus of kidney Category: Medical (4) Urinary incontinence: Code(s): R32 - Unspecified urinary incontinence Category: Medical Plan Plan - Continue performing daily Kegel exercises as discussed. - Pessary maintenance every three months - Discussed CAT scan results for further evaluation- h/o kidney stones Orders: Orders AMB Urinalysis Automated Today Z13.9 - Encounter for screening, unspecified Scribe Plan - Not visible on output: Patient was informed and verbally consented to the use of an ambient scribe for clinic note documentation during this visit. Coding Level of Care Code Est Pt Level 3 (33004) Diagnoses History of kidney stones Z87.442 Complete uterovaginal prolapse N81.3 Kidney stone N20.0 Urinary incontinence R32
== END 2024-10-16 12:40 | disposition home or self-care (01) ==
LOC: HO.HUSH 11:29
PROVIDERS: PCP Internal Medicine; Visit Provider Urology
DX: Z13.9 Encounter for screening, unspecified (principal)

== ENCOUNTER → 2024-10-16 11:28 | Outpatient (BNVA) | payer MEDICARE, SELFPAY | PROVIDERS: PCP Internal Medicine; Visit Provider Urology | DX: N20.0 Calculus of kidney (principal) | CPT/HCPCS: 81003 ==

== ENCOUNTER → 2024-10-21 12:43 | Outpatient (REF) | payer MEDICARE, SELFPAY ==
--- NOTE | 2024-10-21 12:48 | CA_ITS ---
Transthoracic Echocardiogram Patient (Last, First, Middle): Delano Meadows C Gender: Female Date of : 1940 Age: 83 Procedure Date: 10/21/2024 Procedure Type: Transthoracic Echocardiogram Location: OP Height: 152.4 cm Weight: 47.17 kg BSA: 1.41 m2 Heart Rate: bpm BP: 146 / 80 mmHg Cost Recovery Technician: Referring MD: Demario Watts MD Compliance Project Manager: Demario Watts MD Symptoms: I49.3 - Ventricular premature depolarization Study Quality: Adequate ECG Rhythm: Sinus with PACs Conclusions: - The left ventricular systolic function is normal. The calculated ejection fraction is 63% by biplane method. - Aortic valve calcification with early stenosis. Findings Left Ventricle Normal left ventricular cavity size. There is normal left ventricular wall thickness. The left ventricular systolic function is normal. The calculated ejection fraction is 63% by biplane method. There is no evidence of regional wall motion abnormalities. Diastolic function is normal for age. Right Ventricle Normal right ventricular cavity size and systolic function. Atria Both atria are normal in size. Aortic Valve The aortic valve was not well visualized. There is moderate calcification of the aortic valve. There is trace (trivial) aortic valve regurgitation. Early aortic stenosis. Mitral Valve The mitral valve appears normal. There is mild mitral annular calcification. There is trace mitral valve regurgitation. There is no mitral valve stenosis. Pulmonic Valve The pulmonic valve is likely normal. Tricuspid Valve There is mild tricuspid valve regurgitation. There is no evidence of pulmonary hypertension. Great Vessels The asc aorta is normal in size. Venous The inferior vena cava is normal in size and collapses greater than 50% with inspiration. Pericardium/Pleural There is no evidence of pericardial effusion. Prior Study Comparison No prior study available for comparison. Measurements 2D Linear Measurements IVSd: 0.85 0.6-0.9/0.6-1.0 cm LVIDd: 3.73 3.9-5.3/4.2-5.9 cm LVIDd Index: 2.65 2.4-3.2/2.2-3.1 cm/m2 LVIDs: 2.38 2.0-3.6 cm LVPWd: 1.14 0.7-1.1 cm Ao Root: 3.00 2.1-3.5 cm LA Diam: 2.80 2.7-3.8/3.0-4.0 cm LAIDs Index: 1.99 1.5-2.3 cm/m2 LV Mass: 140.56 67-162/88-224 g LV Mass Index: 99.69 43-95/49-115 g/m2 LVOT Diam: 2.10 3.0+(-)1.3 cm 2D Systolic Function EF 4C: 59.50 >55% EF 2C: 65.20 >55% EF BiP: 62.80 >55% Mitral Valve MV Pk E: 0.99 MV PK A: 0.75 MV Decel Time: 313.00 E/A: 1.30 E'Lateral: 8.49 E'Medial: 7.83 E/E' Med: 12.70 E/E' Lat: 11.70 PHT: 92.00 MVA PHT: 2.39 Decel [place]: 3.18 Aortic Valve AoV Pk Jaylan: 2.08 AoV Mn Jaylan: 1.35 AoV VTI: 0.49 AoV Pk Grad: 17.00 Aov Mn Grad: 9.00 PRASANNA Cont.VTI: 1.88 LVOT LVOT Pk Jaylan: 1.10 LVOT Mn Jaylan: 0.74 LVOT VTI: 0.27 LVOT Pk Grad: 5.00 LVOT Mn Grad: 3.00 LVOT Diam: 2.10 LVOT Area: 3.46 Diastolic Function MV Pk E: 0.99 MV Pk A: 0.75 E/A: 1.30 E'Medial: 7.83 E/E' Med: 12.70 E' Laterial: 8.49 E/E' Lat: 11.70 Right Ventricle TAPSE (mm): 32.00 TVS' Jaylan: 9.00 Tricuspid Valve TR Pk Jaylan: 2.10 TR Pk Grad: 18.00 RA Press: 3.00 RVSP: 21.00 Great Vessels Aorta Ao Root-2D: 3.00 2.0-3.7 cm Ao Asc: 2.80 2.1-3.4 cm Pulmonary Valve PV Pk Jaylan: 1.03 Peak PV Grad: 4.00 Updated in Other Vendor System with Status of Final Hi Diehl MD electronically signed on 10/23/2024 11:51:07 AM with status of Final
== END ==
LOC: HO.CARD 12:43
PROVIDERS: PCP Internal Medicine; Visit Provider Internal Medicine Cardiovascular Disease
DX: I49.3 Ventricular premature depolarization (principal)
CPT/HCPCS: 93306

== ENCOUNTER → 2024-10-21 12:48 | Outpatient (BNV) | payer MEDICARE, SELFPAY | PROVIDERS: PCP Internal Medicine; Visit Provider Internal Medicine | DX: I35.8 Other nonrheumatic aortic valve disorders (principal); I35.0 Nonrheumatic aortic (valve) stenosis; I36.1 Nonrheumatic tricuspid (valve) insufficiency; I34.81 Nonrheumatic mitral (valve) annulus calcification | CPT/HCPCS: 93306 ==

== ENCOUNTER 2024-11-06 13:15 | Outpatient (REF) | payer MEDICARE, SELFPAY | END 2024-11-06 13:16 | disposition home or self-care (01) | LOC: HO.MAMMO 13:15 | PROVIDERS: PCP Internal Medicine; Visit Provider Internal Medicine | DX: Z12.31 Encounter for screening mammogram for malignant neoplasm of breast (principal) | CPT/HCPCS: 77063; 77067 ==

== ENCOUNTER → 2024-11-06 13:30 | Outpatient (BNV) | payer MEDICARE, SELFPAY | PROVIDERS: PCP Internal Medicine; Visit Provider Internal Medicine | DX: Z12.31 Encounter for screening mammogram for malignant neoplasm of breast (principal) | CPT/HCPCS: 77063; 77067 ==

== ENCOUNTER 2025-01-27 11:25 | Outpatient (AMB) | payer MEDICARE, SELFPAY ==
--- NOTE | 2025-01-27 11:33 | A.OFFVIS_ITS ---
Intake Visit Reasons: 14w/pessary Intake Note: Patient is present for 14w/pessary maintanence Urology Medication:NONE Antibiotic Allergy:PENICILLINS Blood Thinner:NONE PVR:0ml Hospice Executive Director Required: No Allergies Iodinated Contrast Media (IV CONTRAST) Allergy (Severe, Verified 01/27/25 11:33) SEVERE VOMITING-SHELLFISH ALLERGY mold (MOLD) Allergy (Severe, Verified 01/27/25 11:33) PASSES OUT shellfish derived (SHELLFISH DERIVED) Allergy (Severe, Verified 01/27/25 11:33) VOMITING Penicillins (PENICILLINS) Allergy (Intermediate, Verified 01/27/25 11:33) RASH penicillin V Allergy (Unknown, Verified 01/27/25 11:33) HIVES ENVIRONMENTAL Allergy (Intermediate, Uncoded 07/30/24 11:54) HAYFEVER IV Dye Allergy (Unknown, Uncoded 07/30/24 11:54) shortness of breath shelfish Allergy (Unknown, Uncoded 07/30/24 11:54) vomiting, indigestion Medication List - Last Reconciled 01/27/25 by Stacia Bey MD alprazolam (Xanax) 0.25 mg PO DAILY PRN amlodipine 5 mg PO DAILY estradiol 0.01%(0.1mg/gram) (Estrace) Apply a pea-sized amount to fingertip vaginally 3 times a week, Saturday at bedtime; wmjulbvwrexr-bfqw-yvqvc acid 18-400 mg-mcg (Centrum Women) 1 tab PO DAILY HPI Comments Details: 01/27/25--The patient is an 84-year-old female presenting FU post the placement of a pessary for vaginal prolapse. The pessary use removed cleaned and replaced. On examination is moderate urethral caruncle I would like her to start estrogen cream apply to the area Fridays that bedtime 10/16/24- H/O kidney stones in the past with lithotripsy treatment - The patient is an 83-year-old female presenting with a pessary change. - Pessary management: The patient is here for a routine pessary change, with no reported issues regarding its function or fit. - Urinary tract infection history: The patient reported a previous urinary tract infection Results - Imaging:CT 10/02/24-- No kidney stones detected Plan - Continue with pessary management and schedule follow-up in three months. - Follow up with primary care physician regarding lung finding for further evaluation. - Monitor for any urinary symptoms and report if they occur. 07/17/24-- The patient is an 83-year-old female presenting with urinary incontinence post the placement of a pessary for vaginal prolapse. The leakage occurs continuously without the need to urinate, and it has been present since the pessary insertion. Despite engaging in Kegel exercises with some improvement, the leakage remains problematic, impacting her daily activities. Her condition is further complicated by coughing, which seems to exacerbate the urinary symptoms. H/O lithotripsy for kidney stones. Urinary Symptoms Review - History of a dropped bladder without prior incontinence - urinary incontinence post-pessary insertion - Incontinence possibly exacerbated by coughing and cold environment exposure - Nocturia 04/17/24--Delano is an 83 year old female for evaluation vaginal prolapse. She complains of right flank pain, she states she was treated for kidney stones in the past and thinks she may have another kidney stone. She initially stated she could not give a urine sample. Vaginal exam- uterovaginal prolapse, sized for and pessary placed. The patient was able to void after pessary support. UA- nitrite positive. Will empiracally start antiobics, urine c/s sentl. Will check kidneys- renal US [facility] Medical History Mobitz type 2 second degree atrioventricular block Colonoscopy refused Generalized anxiety disorder Essential hypertension Osteoporosis Fracture of femoral neck, left Surgical History History of cholecystectomy History of appendectomy History of tonsillectomy and adenoidectomy History of left hip hemiarthroplasty Social History Housing: House Patient Tobacco Use Status: Never used Tobacco e-Cigarette/Vaping Use: Never Used service: No Current occupational status: retired Cognitive needs: No Hearing needs: No Vision needs: Yes Office Procedures Post Void Residual Post Residual Void Post Void Residual (PVR): 0 [id number] Void Residual by ultrasound Results AMB Urinalysis, Automated UA Leukoctes 500 Celio/uL Last Edit by Makayla Calvillo on 01/27/25 15:55 UA Nitrite Negative Last Edit by Makayla Calvillo on 01/27/25 15:55 UA Urobilinogen 0.2 mg/dL Last Edit by Crystal Calvillo on 01/27/25 15:55 UA Protein 0 mg/dL Last Edit by Crystal Calvillo on 01/27/25 15:55 UA pH 6.5 Last Edit by Crystal Calvillo on 01/27/25 15:55 UA Blood 25 Josh/uL Last Edit by Crystal Calvillo on 01/27/25 15:55 UA Specific [place] 1.005 Last Edit by Crystal Calvillo on 01/27/25 15:55 UA Ketone Negative Last Edit by Crystal Calvillo on 01/27/25 15:55 UA Bilirubin 0 mg/dL Last Edit by Makayla Nguyentiz on 01/27/25 15:55 UA Glucose 0 mg/dL Last Edit by Makayla Nguyentiz on 01/27/25 15:55 Assessment & Plan Assessment & Plan (1) History of kidney stones: Code(s): Z87.442 - Personal history of urinary calculi Category: Medical (2) Kidney stone: Code(s): N20.0 - Calculus of kidney Category: Medical (3) Urinary incontinence: Code(s): R32 - Unspecified urinary incontinence Category: Medical (4) Vaginal atrophy: Code(s): N95.2 - Postmenopausal atrophic vaginitis Category: Medical (5) Urethral caruncle: Code(s): N36.2 - Urethral caruncle Category: Medical Orders: Orders AMB Urinalysis Automated Today R32 - Unspecified urinary incontinence Medications: New estradiol 0.01%(0.1mg/gram) (Estrace) Apply a pea-sized amount to fingertip vaginally 3 times a week, Saturday at bedtime; 42.5 grams 1RF Patient Instructions: The patient had an opportunity to ask questions regarding treatment plan. The patient expressed understanding and agreement with the above treatment plan. The patient is aware they should contact our office by phone for worsening of their current condition or the appearance of new symptoms. Compliance is encouraged with any medications and followup testing that is ordered. It is a privilege to be allowed the opportunity to participate in the urologic care of your patient. If you have any questions or concerns regarding treatment for the above conditions please do not hesitate to contact me. The office telephone contact is [phone]. This note is constructed in part using voice recognition software. While every effort has been made to ensure accuracy product demonstrator errors may have been included. Yours sincerely, Stacia Bey MD Coding Level of Care Code Est Pt Level 4 (02258) Diagnoses History of kidney stones Z87.442 Kidney stone N20.0 Urinary incontinence R32 Vaginal atrophy N95.2 Urethral caruncle N36.2 CPT Codes Post Residual Void - PVR CPT Code: 21171-[id number] Void Residual by ultrasound ([id number])
== END 2025-01-27 12:25 | disposition home or self-care (01) ==
LOC: HO.HUSH 11:25
PROVIDERS: PCP Internal Medicine; Visit Provider Urology
DX: R32 Unspecified urinary incontinence (principal)

== ENCOUNTER → 2025-01-27 11:25 | Outpatient (BNVA) | payer MEDICARE, SELFPAY | PROVIDERS: PCP Internal Medicine; Visit Provider Urology | DX: Z96.0 Presence of urogenital implants (principal); R32 Unspecified urinary incontinence; N81.3 Complete uterovaginal prolapse; N36.2 Urethral caruncle; N95.2 Postmenopausal atrophic vaginitis; Z87.442 Personal history of urinary calculi | CPT/HCPCS: 51798; 81003; 99212 ==

== ENCOUNTER 2025-02-04 13:30 | Outpatient (AMB) | payer MEDICARE, SELFPAY ==
[2025-02-04 13:33] VITALS: BP 162/52; PULSE 74; BMI 16.9
--- NOTE | 2025-02-04 13:33 | MHC.OFFVIS ---
Vital Signs 02/04/25 13:33 Height 5 ft 4 in Weight 98 lb 5.219 oz BMI 16.9 BP 162/52 H Blood Pressure Location Lt brachial Position Sitting Pulse 74 Pulse Source Pulse Oximeter Intake Visit Reasons: 3 f/u-echo Allergies Iodinated Contrast Media (IV CONTRAST) Allergy (Severe, Verified 02/04/25 13:40) SEVERE VOMITING-SHELLFISH ALLERGY mold (MOLD) Allergy (Severe, Verified 02/04/25 13:40) PASSES OUT shellfish derived (SHELLFISH DERIVED) Allergy (Severe, Verified 02/04/25 13:40) VOMITING Penicillins (PENICILLINS) Allergy (Intermediate, Verified 02/04/25 13:40) RASH penicillin V Allergy (Unknown, Verified 02/04/25 13:40) HIVES ENVIRONMENTAL Allergy (Intermediate, Uncoded 02/04/25 13:40) HAYFEVER IV Dye Allergy (Unknown, Uncoded 02/04/25 13:40) shortness of breath shelfish Allergy (Unknown, Uncoded 02/04/25 13:40) vomiting, indigestion Medication List - Last Reconciled 02/04/25 by LACI CordovaC alprazolam (Xanax) 0.25 mg PO DAILY PRN amlodipine 5 mg PO DAILY coenzyme Q10 100 mg PO DAILY estradiol 0.01%(0.1mg/gram) (Estrace) Apply a pea-sized amount to fingertip vaginally 3 times a week, Saturday at bedtime; eulonyuzcbby-aheu-sqrrf acid 18-400 mg-mcg (Centrum Women) 1 tab PO DAILY HPI HPI 3 f/u-echo: Details: Delano is an 84-year-old female with past medical history of anxiety, hypertension, frequent PACs who presents for follow-up. Today she reports that when she comes to doctor's offices her blood pressure and heart rate is elevated. She says she checks her blood pressure at home and finds it is in the 130s systolic and pulse rate is in the 60s. She does feel heart palpitations at this time but does not usually when she is at home. She has no chest discomfort at rest or with activity. No shortness of breath, PND, orthopnea or edema. She denies lightheadedness, presyncope, syncope, falls. She does normal ADLs. Takes meds as directed. She tells me she is very sensitive to medications and would like to avoid additional medicines if possible. She says she gets side effects, especially dizziness easily. [facility] Medical History Mobitz type 2 second degree atrioventricular block Colonoscopy refused Generalized anxiety disorder Essential hypertension Osteoporosis Fracture of femoral neck, left Surgical History History of cholecystectomy History of appendectomy History of tonsillectomy and adenoidectomy History of left hip hemiarthroplasty Social History Housing: House Patient Tobacco Use Status: Never used Tobacco e-Cigarette/Vaping Use: Never Used service: No Current occupational status: retired Cognitive needs: No Hearing needs: No Vision needs: Yes Review of Systems Const All systems reviewed & are unremarkable except as noted in HPI and below ENT Denies dizziness Card Denies chest pain, Denies chest pain at rest, Denies chest pain with activity, Denies rapid heart rate, Denies pedal edema, Denies edema, Denies leg edema, Denies lightheadedness, Denies palpitations, Denies dyspnea, Denies dyspnea on exertion and Denies orthopnea Resp Denies cough, Denies dyspnea and Denies dyspnea on exertion GI Denies hematochezia and Denies change in stool character Musc Denies abnormal gait, Denies limited range of motion, Denies muscle cramps, Denies muscle weakness, Denies numbness, Denies radiating pain into limb, Denies stiffness and Denies tingling Neuro Denies abnormal gait, Denies dizziness, Denies numbness and Denies tingling Endo Denies palpitations Physical Exam Vital Signs: Last Vital Signs Pulse 74 02/04/25 13:33 BP 162/52 H 02/04/25 13:33 BMI result Body Mass Index 16.9 Const General: cooperative, healthy appearing, comfortable and no acute distress Orientation/consciousness: patient oriented x3 Neck Neck: Yes normal visual inspection Resp Effort & Inspection: normal respiratory effort Auscultation: clear to auscultation bilaterally, no crackles, no rales, no rhonchi and no wheezes Cardio Rate: tachycardic Rhythm: abnormal rhythm Heart sounds: S1 normal heart sound present, S2 normal heart sound present, no gallops, no murmurs and no rubs Neuro General: patient oriented x3 Extrem General: Yes normal to inspection, No no pedal edema and No calf tenderness Psych Appearance: grossly normal Mental Status: mental status grossly normal Speech and movement: Normal speech and movement present Assessment & Plan Assessment & Plan (1) Palpitation: Code(s): R00.2 - Palpitations Category: Medical Plan: She does report heart palpitations where she feels her heart is beating fast. She relates this to anxiety. EKGs in our system review. She does have a history of sinus tachycardia and frequent PACs. PACs have occurred in a trigeminy pattern. On auscultation today she does have a trigeminy pattern noted. Echocardiogram done 10/21/2024 showed EF 63%, no LVH, no regional wall motion abnormalities, early aortic stenosis. She is agreeable to wear Holter monitor to further assess heart rhythm and rates. Hold off on additional medicine at this time. Once Holter reviewed will re-evaluate med management. Cardiology follow-up 6-8 weeks, sooner if needed. (2) PAC (premature atrial contraction): Code(s): I49.1 - Atrial premature depolarization Category: Medical Plan: Frequent PACs seen on prior EKGs (3) PVC (premature ventricular contraction): Code(s): I49.3 - Ventricular premature depolarization Category: Medical Plan: PVCs noted on EKGs (4) Essential hypertension: Code(s): I10 - Essential (primary) hypertension Category: Medical Plan: Blood pressure goal less than 130/80. Blood pressure elevated in the office today 162/52. She reports home blood pressures are well controlled. She is on amlodipine 5 mg daily and tells me she is very sensitive to medications. She may need a rate slowing agent once Holter reviewed. Will hold off on med changes at the moment. (5) Generalized anxiety disorder: Code(s): F41.1 - Generalized anxiety disorder Category: Medical Plan: She reports high anxiety which raises her heart rate and blood pressure when she is in the office. Plan Time spent on chart review, documentation, intravenous assessment Orders: Orders ECG 3 day holter monitor Today I49.1 - Atrial premature depolarization, R00.2 - Palpitations Coding Level of Care Code Est Pt Level 4 (15119) Complex EM visit Add On G2211 Diagnoses Palpitation R00.2 PAC (premature atrial contraction) I49.1 PVC (premature ventricular contraction) I49.3 Essential hypertension I10 Generalized anxiety disorder F41.1 Time Spent (min) 28
== END 2025-02-04 14:11 | disposition home or self-care (01) ==
LOC: HO.HCS 13:30
PROVIDERS: PCP Internal Medicine; Visit Provider Nurse Practitioner Family
DX: R00.2 Palpitations (principal); I49.1 Atrial premature depolarization; I49.3 Ventricular premature depolarization; I10 Essential (primary) hypertension; F41.1 Generalized anxiety disorder
CPT/HCPCS: 99214; G2211

== ENCOUNTER → 2025-02-04 13:30 | Outpatient (BNVA) | payer MEDICARE, SELFPAY | PROVIDERS: PCP Internal Medicine; Visit Provider Nurse Practitioner Family | DX: R00.2 Palpitations (principal); I49.1 Atrial premature depolarization; I49.3 Ventricular premature depolarization; I10 Essential (primary) hypertension; F41.1 Generalized anxiety disorder | CPT/HCPCS: 99212 ==

== ENCOUNTER 2025-02-16 11:03 | Outpatient (REF) | payer MEDICARE, SELFPAY ==
[2025-02-16 13:44] LABS: MANUAL DIFF FLAG NO
[2025-02-16 13:52] LABS: Hematocrit 37.5 % (37.0-47.0); Hemoglobin 12.0 g/dl (12.0-16.0); Imm Gran Abs Auto 0.03 X10*3/uL (0.00-0.03); Imm Gran Pct Auto 0.4 % (0.0-0.4); Lymphocytes Absolute Auto 1.7 X10*3/uL (1.2-4.9); Mean Corpuscular HGB Conc 32.0 g/dl (31.0-35.0); Mean Corpuscular Hemoglobin 28.4 pg (27.0-33.0); Mean Corpuscular Volume 88.9 fL (80.0-98.0); NRBC Abs Auto 0.000 X10*3/uL (0.0-0.012); NRBC Pct Auto 0.0 /100WBC (0.0-0.2); Platelet Count 340 X10*3/uL (160-400); Red Blood Count 4.22 X10*6/uL (4.20-5.50); White Blood Count 8.5 X10*3/uL (4.8-10.8)
[2025-02-16 14:19] LABS: Alanine Aminotransferase 20 U/L (0-31); Anion Gap 11 (12-20); Aspartate Amino Transferase 31 U/L (5-31); Blood Urea Nitrogen 17 mg/dL (9-16); Calcium 9.3 mg/dL (8.4-10.2); Carbon Dioxide 29 mmol/L (22-29); Chloride 102 mmol/L (96-108); Cholesterol 177 mg/dL (<200); Estimated Glomerular Filt Rate > 60; HDL Cholesterol 70 mg/dL (>40); Potassium 3.4 mmol/L (3.3-5.1); Sodium 139 mmol/L (135-145); Triglycerides 103 mg/dL (<150)
[2025-02-16 14:34] LABS: Folate 13.7 ng/mL (> or = 4.0); Vitamin B12 861 pg/mL (200-900)
== END 2025-02-16 11:04 | disposition home or self-care (01) ==
LOC: HO.HMGCLDS 11:03
PROVIDERS: PCP Internal Medicine; Visit Provider Internal Medicine
DX: I10 Essential (primary) hypertension (principal); R53.83 Other fatigue; M81.0 Age-related osteoporosis without current pathological fracture; F41.1 Generalized anxiety disorder
CPT/HCPCS: 36415; 80048; 80061; 82306; 82607; 82746; 84450; 84460; 85025

== ENCOUNTER 2025-02-23 09:32 | Outpatient (AMB) | payer MEDICARE, SELFPAY ==
--- NOTE | 2025-02-23 10:28 | A.OFFPC_ITS ---
Vital Signs 02/23/25 10:35 Height 5 ft 4 in Weight 101 lb BMI 17.3 BP 146/60 H Blood Pressure Location Lt brachial Position Sitting Respiration 15 Pulse 65 Pulse Source Pulse Oximeter Temp 97.5 F Temp Source Oral Pulse Oximetry (%) 98 Oxygen Delivery Method Room Air Intake Visit Reasons: Annual PE Intake Note: Pt is here today for her PE Civil Process Server Required: No Allergies Iodinated Contrast Media (IV CONTRAST) Allergy (Severe, Verified 02/23/25 11:00) SEVERE VOMITING-SHELLFISH ALLERGY mold (MOLD) Allergy (Severe, Verified 02/23/25 11:00) PASSES OUT shellfish derived (SHELLFISH DERIVED) Allergy (Severe, Verified 02/23/25 11:00) VOMITING Penicillins (PENICILLINS) Allergy (Intermediate, Verified 02/23/25 11:00) RASH penicillin V Allergy (Unknown, Verified 02/23/25 11:00) HIVES ENVIRONMENTAL Allergy (Intermediate, Uncoded 02/23/25 11:00) HAYFEVER IV Dye Allergy (Unknown, Uncoded 02/23/25 11:00) shortness of breath shelfish Allergy (Unknown, Uncoded 02/23/25 11:00) vomiting, indigestion Medication List - Last Reconciled 02/23/25 by Genet Parra MD alprazolam (Xanax) 0.25 mg PO DAILY PRN amlodipine 5 mg PO DAILY calcium citrate 200 mg PO DAILY coenzyme Q10 100 mg PO DAILY estradiol 0.01%(0.1mg/gram) (Estrace) Apply a pea-sized amount to fingertip vaginally 3 times a week, Saturday at bedtime; uasnogerwgwh-qksl-xdwzi acid 18-400 mg-mcg (Centrum Women) 1 tab PO DAILY vit C-vit P5-R-anfp-elderberry 65 mg-3.15 mcg- 3.35 mg-1 mg tabs PO Tobacco use date assessed: 02/23/25 Fall risk assessment: No Falls in past year Last assessed Fall Risk: 02/23/25 Dental Screening Dental Screen Date: 02/23/25 Did you have a dental visit in the last 12 months?: Yes Did you have a dental problem in the last 6 months where you did not have access to dental care?: No Was dental information given to patient?: Patient has dentist HPI Annual PE HPI Details The patient is an 84-year-old female presenting for her physical exam. Recent blood work was reviewed and showed a total cholesterol of less than 200, LDL of 87, and HDL of 70. Her vitamin D level is normal, blood sugar is 89, kidney function is normal, and she is not no anemia presentc. She has osteoporosis but declines treatment. She had her last mammogram on November 06 of the previous year, with normal results, and is no longer undergoing colonoscopies or Pap smears. She has received a COVID booster in early December, a flu shot in mid-January, and an RSV vaccine last week. Her records also show she has completed the two- dose shingles series and had a tetanus shot last year. There is some confusion regarding her pneumonia vaccination history; she reports receiving four shots, including one after a hip fracture nine years ago, while records indicate she has had Prevnar 13 and Pneumovax 23. Her blood pressure is slightly elevated, though improved from her last visit. A urologist prescribed Estrace cream for vaginal dryness,, but the patient was hesitant to use it in the swathi-urethral area due to the packaging instructions. She has a follow-up appointment with her urologist on April 26. A recent echocardiogram ordered by her resident director was normal. She is scheduled for a three-day Holter monitor this to evaluate her heart rhythm and has a follow-up with cardiology on March 18 to discuss the results. [facility] Medical History (Updated 03/01/25 @ 00:36 by Genet Parra MD) Lung density present on imaging study Bone density scan declined Mobitz type 2 second degree atrioventricular block Colonoscopy refused Generalized anxiety disorder Essential hypertension Osteoporosis Fracture of femoral neck, left Surgical History History of cholecystectomy History of appendectomy History of tonsillectomy and adenoidectomy History of left hip hemiarthroplasty Social History Housing: House Patient Tobacco Use Status: Never used Tobacco e-Cigarette/Vaping Use: Never Used service: No Current occupational status: retired Cognitive needs: No Hearing needs: No Vision needs: Yes Questionnaire PHQ-9 Over the last 2 weeks, how often have you been bothered by any of the following problems? 1. Little interest or pleasure in doing things: not at all 2. Feeling down, depressed, or hopeless: not at all 3. Trouble falling or staying asleep, or sleeping too much: not at all 4. Feeling tired or having little energy: several days 5. Poor appetite or overeating: not at all 6. Feeling bad about yourself - or that you are a failure or have let yourself or your family down: not at all 7. Trouble concentrating on things, such as reading the newspaper or watching television: not at all 8. Moving or speaking so slowly that other people could have noticed. Or the opposite - being so fidgety or restless that you have been moving around a lot more than usual: not at all 9. Thoughts that you would be better off or of hurting yourself in some way: not at all Total score: 1 Depression Screening Interpretation: Negative Depression Screening Done: Yes Source: Developed by Drs. Miko Frias, Deja Herrera, Warner Payton and colleagues, with an educational zia from [employer]. Thrive Questionnaire Date Thrive assessed: 07/09/24 I am a: Patient What is your living situation today?: I have a steady place to live Within the past 12 months, did the food you bought not last and you didn't have the money to get more?: Never true Within the past 12 months, did you worry whether your food would run out before you got money to buy more?: Never true Do you have trouble paying for medicines?: No Do you have trouble getting transportation to medical appointments?: No Do you have trouble paying your heating and electricity bill?: No Do you have trouble taking care of your child, family member or friend?: No Do you have trouble with day-to-day activities such as bathing, preparing meals, shopping, managing finances, etc.?: No Are you currently unemployed and looking for a job?: No Are you interested in more education?: No Please select the resources that you would like help with: None Currently or been in a relationship where the following occur: No concerns reported THRIVE Score: 0 AUDIT C Alcohol Use Questionnaire (AUDIT-C) 2. How many drinks containing alcohol do you have on a typical day when you are drinking?: 1 or 2 3. How often do you have six or more drinks on one occasion?: Never Total Score: 0 BROCK-7 AMB Questionnaire BROCK-7 Date BROCK - 7 assessed: 07/30/24 Source: Developed by Drs. Miko Frias, Deja Herrera, Warner Payton and colleagues, with an educational zia from [employer]. Review of Systems Const Denies body aches, Denies headache(s) and Denies weakness Eyes Details: Sees Dr. Paul Reports requires corrective lenses ENT Details: Sees her dentist every 8 months Denies dizziness, Denies headache(s) and Denies nasal congestion Card Denies chest pain, Denies lightheadedness and Denies dyspnea Resp Denies cough and Denies dyspnea GI Denies abdominal pain, Denies change in bowel habits and Denies heartburn Reports as per HPI and Denies dysuria Musc Denies arthralgias, Denies joint swelling and Reports stiffness Skin/Breast Denies breast pain, Denies breast mass and Denies rash Neuro Denies dizziness, Denies headache(s) and Denies weakness Psych Reports no additional complaints Endo Reports no additional complaints Arvind/Lymph Reports no additional complaints Aller/Immun Reports seasonal rhinorrhea Physical exam (Primary Care) Vital Signs: Last Vital Signs Temp 97.5 F 02/23/25 10:35 Pulse 65 02/23/25 10:35 Resp 15 02/23/25 10:35 BP 146/60 H 02/23/25 10:35 Pulse Ox 98 02/23/25 10:35 Oxygen Delivery Method Room Air 02/23/25 10:35 BMI result Body Mass Index 17.3 Tobacco/Smoking Status: Tobacco use Status Tobacco use date assessed 02/23/25 02/23/25 10:31 Patient Tobacco Use Status Never used Tobacco 02/23/25 10:31 e-Cigarette/Vaping Use Never Used 02/23/25 10:31 PHQ-9: PHQ-9 Score PHQ-9: Total score 1 02/23/25 11:15 Depression Screening Interpretation: Negative Thrive Assessment: Date of Thrive Assessment Date Thrive assessed 07/09/24 02/23/25 10:31 Currently or been in a relationship where the following occur: No concerns reported Const General: no acute distress and alert Orientation/consciousness: patient oriented x3 Limitations: ambulation with cane HENMT Head: Yes normocephalic Mouth: moist mucous membranes Eyes General: appearance normal, both eyes and all related structures Neck Neck: Yes full ROM, Yes no lymphadenopathy and Yes supple Resp Effort & Inspection: normal respiratory effort and able to speak in complete sentences Auscultation: clear to auscultation bilaterally Cardio Other: Irregular heart rate noted EKG done showed Mobitz type 2 av block, new as compared to previous EKGs Heart sounds: S1 normal heart sound present and S2 normal heart sound present GI Palpation (GI): Soft to palpation, nontender and no masses Auscultation: normal bowel sounds General: Yes no CVA tenderness Back/Spine/Pelvis Other: Kyphosis , no tenderness on palpation over spine Back: no CVA tenderness Skin General skin exam: no rashes or lesions noted and dry skin Neuro General: patient oriented x3, tone normal, moves all extremities, Normal light touch and pain sensation and no focal motor deficits Cranial nerves: Yes CN's II-XII intact bilaterally Cognition (Neuro): normal cognition Extrem General: Yes full ROM, Yes no joint enlargement, Yes no clubbing, cyanosis or edema and Yes no calf tenderness Psych Appearance: grossly normal and well kempt Mental Status: mental status grossly normal Speech and movement: Normal speech and movement present Affect: normal affect Results Reviewed Results Reviewed: RUN: 02/23/25 1102 PAGE 1 [facility] [address] [place] [id number] Pathologist: Hugh Wagoner M.D. Specimen Inquiry Name: Delano Meadows Age/Sex: 84/F : 1940 Unit#: [id number] Attend Dr: Genet Parra MD Re02/16/25 Status: DEP REF Location: [facility] Disch: SPEC : [id number] MARISOL: 02/16/25 STATUS: COMP REQ : [id number] RECD: 02/16/[address]: Genet Parra MD COMP: 02/16/25 ENTERED: 02/16/25 [facility] DR: ORDERED: CBC Auto Diff Test Result Flag Reference WBC 8.5 4.8-10.8 X10*3/uL RBC 4.22 4.20-5.50 X10*6/uL HGB 12.0 12.0-16.0 g/dl HCT 37.5 37.0-47.0 % MCV 88.9 80.0-98.0 fL MCH 28.4 27.0-33.0 pg MCHC 32.0 31.0-35.0 g/dl RDW 13.3 11.0-16.0 % PLT 340 160-400 X10*3/uL MPV 10.0 9.4-12.3 fL Neut Pct Auto 64.9 45-73 % ImGran Pct Auto 0.4 0.0-0.4 % Lymp Pct Auto 20.4 20-40 % Screven Pct Auto 10.4 2-11 % Eos Pct Auto 3.2 0-4 % Baso Pct Auto 0.7 0-2 % NRBC Pct Auto 0.0 0.0-0.2 /100WBC ANC Neut Abs # 5.5 2.0-8.3 x10*3/uL ImGran Abs Auto 0.03 0.00-0.03 X10*3/uL Lymph Abs Auto 1.7 1.2-4.9 X10*3/uL Screven Abs Auto 0.9 0.1-1.2 X10*3/uL Eos Abs Auto 0.3 0.0-0.4 X10*3/uL Baso Abs Auto 0.1 0.0-0.2 X10*3/uL NRBC Abs Auto 0.000 0.0-0.012 X10*3/uL Name: Delano Meadows Age/Sex: 84/F : 1940 Unit#: [id number] Attend Dr: Genet Parra MD Re02/16/25 Status: DEP [facility] Disch: SPEC : [id number] MARSIOL: 02/16/25 STATUS: COMP REQ : [id number] RECD: 02/16/[address]: Genet Parra MD COMP: 02/16/25 ENTERED: 02/16/[address]: ORDERED: Met Prof Fast, AST, ALT, Lipid Panel, Vitamin D 25-OH Test Result Flag Reference Sodium 139 135-145 mmol/L Potassium 3.4 3.3-5.1 mmol/L CL 102 96-108 mmol/L CO2 29 22-29 mmol/L Gap 11 L 12-20 BUN 17 H 9-16 mg/dL Creat 0.58 0.5-1.4 mg/dL eGFR > 60 Chronic Kidney Disease: Estimated GFR < 60 mL/min/1.73m2 Severe Kidney Disease: Estimated GFR < 15 mL/min/1.73m2 FBS 88 60-99 mg/dL CA 9.3 # 8.4-10.2 mg/dL AST (GOT) 31 5-31 U/L ALT (GPT) 20 0-31 U/L Triglyceride 103 <150 mg/dL Desirable Triglyceride: less than 150 mg/dL Borderline High Triglyceride 150-199 mg/dL High Triglyceride: 200-499 mg/dL Very High Triglyceride: greater than or equal to 5OO mg/dL Cholesterol 177 <200 mg/dL Desirable Cholesterol: less than 200 mg/dL Borderline High Cholesterol: 200-239 mg/dL High Cholesterol: greater than 239 mg/dL LDL Calculated 87 <100 mg/dL Desirable LDL: less than 100 mg/dL Near Optimal/Above Optimal LDL: 110-129 mg/dL Borderline High LDL: 130-159 mg/dL High LDL: 160-189 mg/dL Very High LDL: greater than or equal to 190 mg/dL HDL 70 >40 mg/dL Desirable HDL: greater than 40 mg/dL Note: This HDL assay may give artificially low results in patients with liver disease. Vitamin D 25-OH 61.2 >30 ng/mL Health Based Reference Values* < 20 ng/mL Deficient 20-30 ng/mL Insufficient > 30 ng/mL Sufficient *Artur JENKINS. N Engl J Med. 2007;357:[id number] Coding Level of Care Code Est Pt Prev Care >65y(33717) Diagnoses Annual visit for general adult medical examination with abnormal findings Z00.01 Essential hypertension I10 Generalized anxiety disorder F41.1 Mobitz type 2 second degree atrioventricular block I44.1 Age-related osteoporosis without current pathological fracture M81.0 Osteoporosis type: age-related Presence of current pathological fracture: without current pathological fracture Complete uterovaginal prolapse N81.3 Lung density present on imaging study J98.4 Assessment & Plan Assessment & Plan (1) Annual visit for general adult medical examination with abnormal findings: Code(s): Z00.01 - Encounter for general adult medical examination with abnormal findings Plan: She has osteoporosis but declines treatment. She had her last mammogram on November 06 of the previous year, with normal results, and is no longer undergoing colonoscopies or Pap smears. She has received a COVID booster in early December, a flu shot in mid-January, and an RSV vaccine last week. Her records also show she has completed the two- dose shingles series and had a tetanus shot last year. There is some confusion regarding her pneumonia vaccination history; she reports receiving four shots, including one after a hip fracture nine years ago, while records indicate she has had Prevnar 13 and Pneumovax 23. (2) Essential hypertension: Code(s): I10 - Essential (primary) hypertension Category: Medical Plan: Continued on amlodipine 7.5 mg daily (3) Generalized anxiety disorder: Code(s): F41.1 - Generalized anxiety disorder Category: Medical Plan: Takes alprazolam as needed (4) Mobitz type 2 second degree atrioventricular block: Code(s): I44.1 - Atrioventricular block, second degree Category: Medical Plan: Followed by Cardiology (5) Osteoporosis: Comment: Patient refused treatment and further testing Code(s): M81.0 - Age-related osteoporosis without current pathological fracture Category: Medical Qualifiers: Osteoporosis type: age-related Presence of current pathological fracture: without current pathological fracture Qualified Code(s): M81.0 - Age- related osteoporosis without current pathological fracture Plan: Continue with calcium citrate and vitamin-D, continue staying active. Patient however declines getting any further bone density scan with treatment for osteoporosis (6) Complete uterovaginal prolapse: Code(s): N81.3 - Complete uterovaginal prolapse Category: Medical Plan: Followed by Urology who prescribed pessary placement, and Estrace cream (7) Lung density present on imaging study: Code(s): J98.4 - Other disorders of lung Category: Medical Plan: Patient has been told that there was anterior base of the left lower lobe there is a new 8 x 14 mm density with air bronchograms on.anterior base of the left lower lobe , which could represent round atelectasis or a new nodule. seen on CT of abdomen pelvis done September 2024 by Urology. Patient however refused to do any further evaluation for these, Orders: Orders Lipid Panel 6 Months I10 - Essential (primary) hypertension, I44.1 - Atrioventricular block, second degree, M81.0 - Age-related osteoporosis without current pathological fracture, Z53.20 - Procedure and treatment not carried out because of patient's decision for unspecified reasons Vitamin D 25-OH Total 6 Months I10 - Essential (primary) hypertension, I44.1 - Atrioventricular block, second degree, M81.0 - Age-related osteoporosis without current pathological fracture, Z53.20 - Procedure and treatment not carried out because of patient's decision for unspecified reasons Basic Metabolic Panel Fasting 6 Months I10 - Essential (primary) hypertension, I44.1 - Atrioventricular block, second degree, M81.0 - Age-related osteoporosis without current pathological fracture, Z53.20 - Procedure and treatment not carried out because of patient's decision for unspecified reasons Aspartate Amino Transferase 6 Months I10 - Essential (primary) hypertension, I44.1 - Atrioventricular block, second degree, M81.0 - Age-related osteoporosis without current pathological fracture, Z53.20 - Procedure and treatment not ca rried out because of patient's decision for unspecified reasons Alanine Aminotransferase 6 Months I10 - Essential (primary) hypertension, I44.1 - Atrioventricular block, second degree, M81.0 - Age-related osteoporosis without current pathological fracture, Z53.20 - Procedure and treatment not carried out because of patient's decision for unspecified reasons Medications: Changed From amlodipine 5 mg PO DAILY 90 tabs 1RF To amlodipine 7.5 mg (1.5 x 5 mg) PO DAILY 3 months 135 tabs 1RF
[2025-02-23 10:35] VITALS: BP 146/60; PULSE 65; RESP 15; TEMP 36.4; O2SAT 98; BMI 17.3
== END 2025-02-23 11:22 | disposition home or self-care (01) ==
LOC: HO.HMCC 09:33
PROVIDERS: PCP Internal Medicine; Visit Provider Internal Medicine
DX: Z00.01 Encounter for general adult medical examination with abnormal findings (principal); I10 Essential (primary) hypertension; F41.1 Generalized anxiety disorder; I44.1 Atrioventricular block, second degree; M81.0 Age-related osteoporosis without current pathological fracture; N81.3 Complete uterovaginal prolapse; J98.4 Other disorders of lung

== ENCOUNTER → 2025-02-23 09:32 | Outpatient (BNVA) | payer MEDICARE, SELFPAY | PROVIDERS: PCP Internal Medicine; Visit Provider Internal Medicine | DX: Z00.01 Encounter for general adult medical examination with abnormal findings (principal); M81.0 Age-related osteoporosis without current pathological fracture; R03.0 Elevated blood-pressure reading, without diagnosis of hypertension; I10 Essential (primary) hypertension; F41.1 Generalized anxiety disorder; I44.1 Atrioventricular block, second degree; N81.3 Complete uterovaginal prolapse; J98.4 Other disorders of lung | CPT/HCPCS: 96127; 99397 ==

== ENCOUNTER → 2025-02-25 11:10 | Outpatient (REF) | payer MEDICARE, SELFPAY | LOC: HO.CARD 11:10 | PROVIDERS: PCP Internal Medicine; Visit Provider Nurse Practitioner Family | DX: I49.1 Atrial premature depolarization (principal); R00.2 Palpitations | CPT/HCPCS: 93242 ==

== ENCOUNTER → 2025-02-25 11:13 | Outpatient (BNV) | payer MEDICARE, SELFPAY | PROVIDERS: PCP Internal Medicine; Visit Provider Internal Medicine | DX: I49.3 Ventricular premature depolarization (principal); I49.49 Other premature depolarization | CPT/HCPCS: 93244 ==

== ENCOUNTER 2025-03-18 14:24 | Outpatient (AMB) | payer MEDICARE, SELFPAY ==
[2025-03-18 15:01] VITALS: BP 138/70; PULSE 88; BMI 16.6
--- NOTE | 2025-03-18 15:01 | MHC.OFFVIS ---
Vital Signs 03/18/25 15:01 Height 5 ft 4 in Weight 97 lb 0.054 oz BMI 16.6 BP 138/70 Blood Pressure Location Lt brachial Position Sitting Pulse 88 Pulse Source Pulse Oximeter Intake Visit Reasons: 7wk follow up/holter Allergies Iodinated Contrast Media (IV CONTRAST) Allergy (Severe, Verified 02/23/25 11:00) SEVERE VOMITING-SHELLFISH ALLERGY mold (MOLD) Allergy (Severe, Verified 02/23/25 11:00) PASSES OUT shellfish derived (SHELLFISH DERIVED) Allergy (Severe, Verified 02/23/25 11:00) VOMITING Penicillins (PENICILLINS) Allergy (Intermediate, Verified 02/23/25 11:00) RASH penicillin V Allergy (Unknown, Verified 02/23/25 11:00) HIVES ENVIRONMENTAL Allergy (Intermediate, Uncoded 02/23/25 11:00) HAYFEVER IV Dye Allergy (Unknown, Uncoded 02/23/25 11:00) shortness of breath shelfish Allergy (Unknown, Uncoded 02/23/25 11:00) vomiting, indigestion Medication List - Last Reconciled 03/18/25 by MARNI Cordova alprazolam (Xanax) 0.25 mg PO DAILY PRN amlodipine 7.5 mg (3 x 2.5 mg) PO DAILY 3 months calcium citrate 200 mg PO DAILY coenzyme Q10 100 mg PO DAILY estradiol 0.01%(0.1mg/gram) (Estrace) Apply a pea-sized amount to fingertip vaginally 3 times a week, Saturday at bedtime; iginjwgpjrfx-gbnl-nhmiw acid 18-400 mg-mcg (Centrum Women) 1 tab PO DAILY vit C-vit H7-A-xxks-elderberry 65 mg-3.15 mcg- 3.35 mg-1 mg tabs PO HPI HPI 7wk follow up/holter: Details: Delano is an 84-year-old female with past medical history of anxiety, hypertension, frequent PACs who presents for follow-up after recent Holter monitor showing frequent SVE, possible atrial fibrillation.. Today she reports that is frequently feeling fluttering in her chest. She states she even has it at the time of this visit. EKG confirms sinus rhythm with frequent PACs. She has high anxiety and stress levels. She has no chest discomfort at rest or with activity. No shortness of breath, PND, orthopnea or edema. She denies lightheadedness, presyncope, syncope, falls. She does normal ADLs. Takes meds as directed. She tells me she is very sensitive to medication and very fearful of getting lightheadedness and falling. He ambulates with a walker. [facility] Medical History Lung density present on imaging study Bone density scan declined Mobitz type 2 second degree atrioventricular block Colonoscopy refused Generalized anxiety disorder Essential hypertension Osteoporosis Fracture of femoral neck, left Surgical History History of cholecystectomy History of appendectomy History of tonsillectomy and adenoidectomy History of left hip hemiarthroplasty Social History Housing: House Patient Tobacco Use Status: Never used Tobacco e-Cigarette/Vaping Use: Never Used service: No Current occupational status: retired Cognitive needs: No Hearing needs: No Vision needs: Yes Review of Systems Const All systems reviewed & are unremarkable except as noted in HPI and below Denies weakness ENT Denies dizziness Card Details: heart fluttering Denies chest pain, Denies chest pain with activity, Denies syncope, Denies rapid heart rate, Denies pedal edema, Denies edema, Denies leg edema, Denies lightheadedness, Denies palpitations, Denies dyspnea, Denies dyspnea on exertion and Denies orthopnea Resp Denies cough, Denies dyspnea and Denies dyspnea on exertion GI Denies hematochezia and Denies change in stool character Musc Denies abnormal gait, Denies muscle cramps, Denies muscle weakness, Denies numbness, Denies radiating pain into limb and Denies tingling Neuro Denies abnormal gait, Denies dizziness, Denies syncope, Denies numbness, Denies tingling and Denies weakness Endo Denies palpitations Physical Exam Vital Signs: Last Vital Signs Pulse 88 03/18/25 15:01 BP 138/70 03/18/25 15:01 BMI result Body Mass Index 16.6 Const General: cooperative, healthy appearing, comfortable and no acute distress Orientation/consciousness: patient oriented x3 Neck Neck: Yes normal visual inspection Resp Effort & Inspection: normal respiratory effort Auscultation: clear to auscultation bilaterally, no crackles, no rales, no rhonchi and no wheezes Cardio Rate: tachycardic Rhythm: abnormal rhythm Heart sounds: S1 normal heart sound present, S2 normal heart sound present, no gallops, no murmurs and no rubs Neuro General: patient oriented x3 Extrem General: Yes normal to inspection, No no pedal edema and No calf tenderness Psych Appearance: grossly normal Mental Status: mental status grossly normal Speech and movement: Normal speech and movement present Office Procedures EKG Details: Today, read by me, sinus tachycardia with frequent PACs, rate 106 [id number], Complete Assessment & Plan Assessment & Plan (1) Palpitation: Code(s): R00.2 - Palpitations Category: Medical Plan: She does report heart palpitations where she feels her heart is beating fast and fluttering. She does have a history of sinus tachycardia and frequent PACs. PACs have occurred in a trigeminy pattern. Holter monitor done 02/25/2025 for 3 days shows sinus rhythm with average heart rate 81, SVE 25% of the time, possible atrial fibrillation and rare ventricular ectopy. She is reporting fluttering in the office today an EKG shows sinus rhythm with frequent PACs. At this time will start metoprolol XL 12.5 mg daily. Instructed to call if she has an issue with this medication. Will check with her primary guidance consultant regarding need for anticoagulation as AFib finding is not absolute. Chads Vasc score 4. Cardiology follow-up 3 months, sooner if needed. (2) PAC (premature atrial contraction): Code(s): I49.1 - Atrial premature depolarization Category: Medical Plan: Frequent PACs seen on EKGs and now Holter monitor. (3) PVC (premature ventricular contraction): Code(s): I49.3 - Ventricular premature depolarization Category: Medical Plan: PVCs noted on EKGs in past, rare on Holter monitor (4) Essential hypertension: Code(s): I10 - Essential (primary) hypertension Category: Medical Plan: Blood pressure goal less than 130/80. Blood pressure today 138/70. She reports home blood pressures are well controlled with systolic 120-130. She is on amlodipine 7.5 mg daily and tells me she is very sensitive to medications. Adding low-dose metoprolol (5) Generalized anxiety disorder: Code(s): F41.1 - Generalized anxiety disorder Category: Medical Plan: She reports high anxiety which raises her heart rate and blood pressure when she is in the office. Plan I explained to the patient that the EKG performed in the office showed numerous early heartbeats, which are the cause of her fluttering sensation. I informed her that while this rhythm does not require a blood thinner, her recent heart monitor study was suspicious for atrial fibrillation, a different rhythm that does carry a risk of stroke. I communicated that I would review the monitor findings with the guidance consultant to determine if anticoagulation is truly necessary. We discussed treatment options, and I recommended a low dose of metoprolol to help control the extra beats and reduce her symptoms. She expressed concerns about dizziness but was agreeable to trying the medication. We discussed anticoagulation options should they be necessary, noting that warfarin is her most cost-effective choice, but she has significant reservations about the required blood monitoring. She agreed to start the metoprolol and to await a final decision on anticoagulation. A follow-up visit is scheduled in 3 months. Medications: New metoprolol succinate ER Take 1/2 tablet daily ( please break tablets in half for her) 12.5 mg (1/2 x 25 mg) PO DAILY 15 tabs 4RF Patient Instructions: - Start taking metoprolol, half of one pill, as prescribed. This medication is intended to help reduce the fluttering feeling in your chest. - We are reviewing the results of your recent heart monitor with a computer network specialist to see if you need to take a blood thinner medication. We will contact you with more information once a decision is made. - Please return for a follow-up appointment in 3 months. Patient was informed and verbally consented to the use of an ambient scribe for clinic note documentation during this visit. Visit time spent on chart review, interview, assessment, orders, documentation. Coding Level of Care Code Est Pt Level 4 (13235) Add On Problem Visit Only Diagnoses Palpitation R00.2 PAC (premature atrial contraction) I49.1 PVC (premature ventricular contraction) I49.3 Essential hypertension I10 Generalized anxiety disorder F41.1 CPT Codes EKG - CPT: 84011-[id number], Complete ([id number]) Time Spent (min) 30
== END 2025-03-18 15:38 | disposition home or self-care (01) ==
LOC: HO.HCS 14:25
PROVIDERS: PCP Internal Medicine; Visit Provider Nurse Practitioner Family
DX: R00.2 Palpitations (principal); I49.1 Atrial premature depolarization; I49.3 Ventricular premature depolarization; I10 Essential (primary) hypertension; F41.1 Generalized anxiety disorder
CPT/HCPCS: 93010; 99214; G2211

== ENCOUNTER → 2025-03-18 14:24 | Outpatient (BNVA) | payer MEDICARE, SELFPAY | PROVIDERS: PCP Internal Medicine; Visit Provider Nurse Practitioner Family | DX: R00.2 Palpitations (principal); I49.1 Atrial premature depolarization; I49.3 Ventricular premature depolarization; I10 Essential (primary) hypertension; F41.1 Generalized anxiety disorder; R42 Dizziness and giddiness; Z79.899 Other long term (current) drug therapy | CPT/HCPCS: 93005; 99212 ==